=== PATIENT | male | born 1955 | race Caucasian/White ===

== ENCOUNTER 2019-03-18 12:56 | Emergency (ER) | payer BC, SELFPAY ==
[2019-03-18 12:57] VITALS: BP 140/86; PULSE 72; RESP 18; TEMP 36.2; O2SAT 98; BMI 25.5
--- NOTE | 2019-03-18 13:29 | CT_ITS ---
STUDY: CT ABDOMEN AND PELVIS WITH CONTRAST REASON FOR EXAM: Male, 63 years old. History of melanoma RADIATION DOSAGE (If Supplied By Facility): CTDIvol = ( 16.18 ) mGy, DLP = ( 1785.71 ) mGycm TECHNIQUE: Transaxial images were obtained from the dome of the diaphragm to the symphysis pubis without oral contrast. 100 IV/Oral Isovue 300 was administered. Sagittal and coronal images were reconstructed. Individualized dose optimization techniques were used for this CT. COMPARISON: PET scan April 19, [address] FINDINGS: There is visualization of the right-sided pulmonary parenchyma. Since prior study there is been a development of large masses that are bordering the diaphragms and the confines of the pericardial fat bilaterally. The mass on the right measures 8 x 6 cm. The mass on the left measures 9.7 x 7.9 cm invading into the fat within the left upper quadrant. The heart is borderline and partially effaced by 2 large masses in the lower chest. Normal liver. Normal gallbladder and extrahepatic biliary system. Normal spleen. There is an atrophied appearance of the tail the pancreas. The pancreatic duct is distended and likely obstructed by the 6.5 x 5.3 x 4.5 cm large mass at the head of the pancreas which is inhomogeneous partially enhancing and lobulated. This masses pushing into the inferior mesenteric vein just under the splenic confluence causing greater than 90% stenosis. See image #45 coronal views. There is no definitive thrombus within the portal vein at this time. There is a mass in the right adrenal gland or near the right adrenal gland that measures 4.5 x 4.7 x 5.8 cm. The left adrenal gland appears normal. Normal right kidney. There is an exophytic cyst in the left kidney stable since prior study measuring 1.8 cm per There is radiopaque food material within the stomach. There is an air-fluid level demonstrated. There is a mass near the stomach and liver measuring 2.1 x 1.8 cm. There masses within the mesentery bordering the small bowel and at least 3 places. One image #74 measuring 2.0 x 1.9 cm the next measuring 4.3 x 3.8 cm image #80 axial views and within the pelvis measuring 4.5 x 4 cm image #90. At this time there is no evidence of bowel obstruction there is a mildly thickened appearance of the small bowel. The colon is relatively torturous decompressed. There are a few diverticula present without diverticulitis. The appendix is visualized and appears normal. Normal abdominal aorta. Normal inferior vena cava. There are small retroperitoneal lymph nodes. There is a small focus of fluid or developing mass in the right side of the pelvis measuring 1.3 cm. Normal urinary bladder. The prostate is mildly enlarged with calcification. There is a visualized right side semimembranosus muscle enhancing mass measuring 1.6 x 1.5 cm. And is seen on the left lower extremity CT there is a mass within the medial aspect of the left thigh measuring 4.6 x 4.1 cm. There is also mass in the left-sided adductor muscle. There are diffuse degenerative changes of the visualized lumbar spine. CT/Abdomen/Pelvis WITH Contrast IMPRESSION: Multifocal large enhancing masses as detailed above including large masses on both sides of the heart. In addition there is a concerning mass which is effacing the inferior mesenteric vein just proximal to the confluence. There is a mass which is obstructing the pancreatic duct. Multiple mesenteric and soft tissue, intramuscular masses. Above findings consistent with widespread metastasis likely from melanoma. These findings were discussed with Dr. Fletcher. N.B. : The above information has been verbally conveyed by Rossy Gray MD to Anh Fletcher MD, on 03/18/2019 16:08:31 (ET). Electronically Signed: Rossy Gray MD at 16:27 EDT Tel , Service support ,
--- NOTE | 2019-03-18 13:30 | CT_ITS ---
We are attempting to reach an attending provider to discuss findings. An addendum with communication details will be sent when the communication is complete. STUDY: T LOWER EXTREMITY WITH CONTRAST LEFT LEFT REASON FOR EXAM: Male, 63 years old. Palpable nodularity left leg RADIATION DOSAGE (If Supplied By Facility): CTDIvol = ( 16.18 ) mGy, DLP = ( 1785.71 ) mGycm. Individualized dose optimization techniques were used for this CT.? TECHNIQUE: Multiple axial images of the left flexion deformity were obtained from the iliac crests to the distal shaft of the femur after the administration of 100 mL of Isovue-300. Sagittal coronal reformatted images are performed. COMPARISON: Limited comparison April 19, 2016 PET/CT FINDINGS: Superficial to the level of the left proximal superficial femoral artery internal to the gracilis lateral to the abductor muscle partially within the fat there is a abnormal enhancing lobulated mass measuring 4.2 x 4.6 x 5.1 cm. It has mass effect. There is an additional mass within the adductor longus or bordering the fat measuring 1.9 x 1.7 cm. Within the partially visualized pelvis there is a similar-appearing lobulated enhancing mass measuring 4.4 x 3.3 cm image #13 in the mid mesentery. There is an additional masslike density measuring 4.6 x 3.1 cm bordering the small bowel. The bladder wall is mildly thickened. The prostate is moderately enlarged. . CT/Extremity Lower WITH Contrast IMPRESSION: There are 4 masses visualized. On this left lower extremity study. The mass in the thigh that is palpable is enhancing and in the medial aspect of the left lower extremity measuring 4.2 x 4.6 x 5.8 cm as detailed above. There is a mass in the adductor longus, there are 2 masses within the mesentery each measuring approximately 4.4 x 3 cm. Findings are suspicious for multifocal metastasis, given history of melanoma consider metastatic melanoma. Recommend correlation with CT scan of the abdomen and pelvis. And/or follow-up PET scan. Electronically Signed: Rossy Gray MD at 16:02 EDT Tel , Service support ,
[2019-03-18] MEDS: Ondansetron 4 MG/2 ML Vial IV (13:52)
[2019-03-18 14:09] LABS: Absolute Lymphocyte Count 0.75 X10^3/ul (0.83-4.51); Absolute Neutrophil Count 5.2 X10^3/uL (2.0-7.7); Basophil# 0.01 X10^3/uL; Basophil% 0.2 % (0-1); Eosinophil# 0.15 X10^3/uL; Eosinophils% 2.3 % (0-5); Hematocrit 42.4 % (40-54); Hemoglobin 14.3 g/dl (13.0-16.5); Lymphocyte # 0.75 X10^3/ul (4.0); Lymphocyte % 11.4 % (19-41); Mean Corp Hgb Conc 33.7 g/gl (32-36); Mean Corpuscular Hgb 29.9 pg (27.0-32.0); Mean Corpuscular Volume 88.7 fL (80-94); Mean Platelet Vol. 10.4 fl (6.2-12.0); Monocyte# 0.44 X10^3/uL; Monocyte% 6.7 % (0-10); Neutrophil # 5.21 X10^3/uL (2.7-7.7); Neutrophil % 79.2 % (47-70); POSITIVE COUNT NO; POSITIVE DIFFERENTIAL NO; POSITIVE MORPHOLOGY NO; Platelet Count 250 K/mm3 (150-450); RBC Distribution Width CV 13.8 % (11.6-14.6); RBC Distribution Width SD 43.9 fl (35.1-43.9); Red Blood Count 4.78 M/mm3 (4.6-6.2); White Blood Count 6.6 K/mm3 (4.4-11.0)
[2019-03-18 14:18] LABS: AST(SGOT) 20 U/L (15-37); Alanine Aminotransfer ALT/SGPT 36 U/L (16-61); Albumin, Serum 3.1 g/dL (3.2-5.0); Alkaline Phosphatase 154 U/L (45-117); Anion Gap 8 (5-15); BUN 22 mg/dL (7-18); BUN/Creat Ratio 20.8 RATIO (10-20); Bilirubin, Direct 0.14 mg/dL (0.00-0.30); Calcium,Total 8.9 mg/dL (8.5-10.1); Chloride 103 mmol/L (98-107); Creatinine, Serum 1.06 mg/dL (0.70-1.30); EST Glomerular Filtration Rate 75 mL/min (>60); Est Glom Filt Rate - Afr Amer 91 mL/min (>60); Estimated Creatinine Clearance 69.01 ml/min; Globulin 3.7 g/dL (2.2-4.2); Glucose 120 mg/dL (74-106); Lipase 169 U/L (73-393); Potassium 4.1 mmol/L (3.5-5.1); Protein, Total 6.8 g/dL (6.4-8.2); Sodium Level 141 mmol/L (136-145)
[2019-03-18 14:44] LABS: Bacteria 0 SEEN /hpf (None Seen); Mucous, Urine 0 SEEN /hpf (<or=2+); Red Blood Cells-Urine 0 SEEN /hpf (0-5); Squamous Epithelial Cells - UA 0 SEEN /hpf (0-5); White Blood Cells 0 SEEN /hpf (0-5)
[2019-03-18 14:49] LABS: Color, Urine Yellow (Yellow); Glucose, Dipstick Normal (Normal); Ketone-Dipstick Negative (Negative); Leukocyte Esterase-Dipstick Negative /ul (Negative); Nitrite-Dipstick Negative (Negative); Occult Blood-Urine Negative /ul (Negative); Protein-Dipstick Negative (Negative); Specific Gravity, Urine 1.025 (1.002-1.030); Urine Bilirubin Dipstick Negative (Negative); Urine Clarity Clear (Clear); Urine Urobilinogen 1 mg/dl (Normal)
--- NOTE | 2019-03-18 15:45 | ED.VISSUMM ---
- ER Visit Summary Date of Service: 03/18/19 Chief Complaint: Abdominal pain, vomiting History of Present Illness: The patient is a 63 M with generalized abdominal pain and nausea/vomiting, worse at night over the past 1 to 2 months. Patient states he feels very fatigued and tired. He has had a 20 pound weight loss since winter but does admit he was trying to lose some weight as well. He has noted a lump to his left thigh that is nontender. He was seen by his PCP and advised he probably had pulled a muscle. Patient denies any blood work or imaging being done. Patient does have a history of melanoma on his chest that was excised 3 years ago. Physical Examination: Vital signs are unremarkable. Patient lying in bed no acute distress. He is nontoxic-appearing. Head and neck examination unremarkable. Heart is regular rate and rhythm. Lung sounds are clear. Abdomen is soft with no focal tenderness to palpation. Hypoactive bowel sounds are present throughout. Lower extremity examination was a firm 6 cm round mass in the proximal anterior left thigh. No overlying skin changes are noted. Test Results: CBC and chemistry studies significant only for glucose of 120. LFTs significant for an alk phos of 154. Lipase is normal. Urinalysis normal. CT scan of the left lower extremity reveals 2 masses in the left thigh. There are 2 masses visualized in the left pelvis. CT abdomen pelvis with p.o. and IV contrast reveals multifocal large enhancing masses throughout the abdomen. One mass is effacing the inferior mesenteric vein. One mass is absent in the pancreatic duct. These findings are consistent with metastatic melanoma. Emergency Department Course and Treatment: Patient was given IV fluids and Zofran. Test results were discussed with the patient and at bedside. He states that he saw a doctor in [place] with his prior melanoma and wishes to follow-up with them. I specifically asked multiple times whether this was a director of residence life, general surgeon, or oncologist. He is unsure but will call them in the morning. I advised him he must follow-up with an oncologist as soon as possible. He will be given phone numbers for both oncology group here in [facility] for follow-up if he does not have an oncologist that he can get into. Treatment Plan: [] Disposition: Discharge Impression: Metastatic melanoma This note was generated with [employer] software. It may contain incorrect words, spelling, and punctuation that were not noted in review of the chart prior to signing ED Disposition - Plan for ED Patient: Disposition: Home or Assisted Living Prescriptions: Hydrocodone Bitart/Apap 5-325 [[place] 5MG-325MG] 1 tablet PO Q6H PRN PRN 3 Days #10 tablet PRN Reason: Pain Ondansetron [Zofran Odt] 4 mg PO Q8H PRN PRN #10 tablet PRN Reason: Nausea Referrals: Tim Guevara DO [STAFF PHYSICIAN] - Mango Collado MD [STAFF PHYSICIAN] - Additional Instructions: As discussed, your CT scans revealed multiple masses in your abdomen and two in the left thigh. These appear to be consistant with metastatic melanoma. You need to follow-up with your oncologist as soon as possible. If you cannot find the information for the oncologist you saw previously, the information for two of the local oncologists have been provided.
[2019-03-18 16:00] VITALS: BP 143/99; PULSE 67; RESP 16; O2SAT 97
[2019-03-18] MEDS: 0.9% Normal Saline 1,000 ML 150 ML IV (16:25)
[2019-03-18 17:03] VITALS: BP 141/89; PULSE 73; RESP 16; O2SAT 97
== END 2019-03-18 17:04 | disposition home or self-care (01) ==
PROVIDERS: Emergency Provider Emergency Medicine; Family Provider Family Medicine; PCP Family Medicine
DX: C79.9 Secondary malignant neoplasm of unspecified site (principal); Z85.820 Personal history of malignant melanoma of skin; Z72.0 Tobacco use
CPT/HCPCS: 73701; 74177; 80048; 80076; 81001; 83690; 85025; 96361; 96374; 99283; J7030; J7040; Q9967; J2405

== ENCOUNTER → 2019-03-23 | Outpatient (CLI) | payer BC, SELFPAY ==
--- NOTE | 2019-03-23 | IMM_PTH ---
PATIENT: CHRIS GARDNER LOC: [facility] U#:[id number] AGE/SX: 63/M ROOM: RE03/23/[address]: Dr. Darryn Storey MD : 1955 BED: DIS: 03/23/2019 SPEC #: [id number] RECD: 03/27/19 10:42 STATUS: DREA REQ #: [id number] ROBIN: 03/23/19 00:[address]: Darryn Storey DEPT: IMMUNOHISTOCHEMISTRY RECD BY: Perla Meadows ENTERED: 03/27/19 10:48 SP TYPE: IMMUNO OTHR DR: No Primary Care Phys Tissues: Skin of leg, NOS Procedures: RCC (add) SMA (add) NAPSIN A (add) CK20 (add) CK5-6 (add) CK7 (add) CK8 (add) DESMIN (add) HEP PAR (add) TTF1 (add) Vimentin (add) Pankeratin (initial) MELAN-A (add) P40 (add) PSAP (add) S-100 (add) PHYSICIAN & [address] [address] SPECIMEN INFORMATION: Tissue Source: Left thigh tissue Clinical Info: Left thigh mass Specimen Number: [id number] CPT code: 44656, 70762 x15 METHODOLOGY: Deparaffinized sections of prefer/formalin-fixed tissue or PAP/DQ stained slides are incubated with monoclonal/polyclonal antibodies/oligonucleotide probes. Localization is made via biotin free immunoperoxidase method. Appropriate controls are performed and reacted as expected. Results on target cell population are indicated in the following table: RESULTS: ANTIBODY / CLONE RESULT AE1-3 (AE1/AE3/PCK26) negative CK7 (OV-TL12/30) negative CK8 (74nuesG12) negative CK20 (KS20.8) negative Vimentin (V9) positive Actin (1A4) negative Desmin (CE-R-11) positive, focal and weak Melan A (A103) positive S-100 (4C4.9) positive TTF-1 (8G7G3/1) negative Napsin A (Rabbit Polyclonal) negative HepPar (OCh1E5) negative RCC (PN-15) negative PSAP (PASE/4LJ) negative CK5-6 (D5 & 1684) negative P40 (BC28) negative These tests were developed and their performance characteristics determined by [facility]. They may not have been cleared or approved by the U.S. Food and Drug Administration. The FDA has determined that such clearance or approval is not necessary. INTERPRETATION: Left thigh, biopsy: Consistent with metastatic malignant melanoma. Ezequiel Crouch M.D. 03/27/19 Comment: Clinical correlation necessary.
[2019-03-23 13:52] VITALS: BMI 25.8
--- NOTE | 2019-03-23 14:00 | MASS_PTH ---
PATIENT: CHRIS GARDNER LOC: [facility] U#:[id number] AGE/SX: 63/M ROOM: RE03/23/[address]: Dr. Darryn Storey MD : 1955 BED: DIS: 03/23/2019 SPEC #: [id number] RECD: 03/23/19 14:57 STATUS: DREA REThai #: [id number] ROBIN: 03/23/19 14:[address]: Darryn Storey DEPT: SURGICAL PATHOLOGY RECD BY: Andrea Ennis ENTERED: 03/26/19 11:17 SP TYPE: Mass OTHR DR: No Primary Care Phys Tissues: Thigh, NOS Procedures: Surgery Specimen Level IV HEADER OPERATION: Left thigh biopsy PRE-OP DIAGNOSIS: Left thigh mass; possible metastatic melanoma TISSUE SUBMITTED: Left thigh tissue MICROSCOPIC DIAGNOSIS Left thigh tissue, core biopsy: Consistent with metastatic malignant melanoma. See comment. SOFYA:shimon 03/27/19 COMMENT Immunohistochemistry ([id number]) supports the above diagnosis. Case has been reviewed in consultation with Dr. Adame who concurs with the above diagnosis. IDC:AM MICROSCOPIC DESCRIPTION Slides are reviewed. GROSS DESCRIPTION Received in fixative is one container labeled with the patient's name and designated left thigh. The specimen consists of multiple elongated fragments of farr-yellow soft tissue that in aggregate measure 3 x 2 x 0.2 cm. The entire specimen is submitted in one cassette. / SJ:shimon 03/26/19 TC:0 CPT: 28770 ADDENDUM ADDENDUM ADDENDUM ADDENDUM ADDENDUM ADDENDUM ADDENDUM 04/18/2019 11:51 ADDENDUM 04/18/2019 11:51 ADDENDUM 04/18/2019 11:51 ADDENDUM 04/18/2019 11:51 ADDENDUM 04/18/2019 11:51 BRAF ANALYSIS FROM [facility] RESULTS: Negative No BRAF V600E or V600K mutations were detected in the provided specimen. Please see complete report in e-chart or EMR for complete details
== END | disposition home or self-care (01) ==
LOC: LABSPEC 15:20
PROVIDERS: Referring Provider Surgery; Visit Provider Surgery
DX: R22.42 Localized swelling, mass and lump, left lower limb (principal)
CPT/HCPCS: 88305; 88341; 88342

== ENCOUNTER → 2019-03-29 | Outpatient (CLI) | payer BC, SELFPAY ==
[2019-03-22 10:36] VITALS: BMI 25.8
[2019-03-23 13:52] VITALS: BMI 25.8
--- NOTE | 2019-03-29 17:36 | MRI_ITS ---
STUDY: MRI BRAIN WITH AND WITHOUT CONTRAST REASON FOR EXAM: Male, 63 years old. Melanoma, staging TECHNIQUE: Standardized multiplanar fat and water weighted pulse sequences were obtained. 15 IV Dotarem was administered for the contrast portion of the examination. COMPARISON: PET/CT 04/19/2016. FINDINGS: Normal size of the ventricles and extra-axial spaces for the patient's age. Normal white matter tracts of the supratentorial brain. Normal bilateral basal ganglia. Normal thalami. There is no extra-axial fluid accumulation. Normal flow voids within the major intracranial circulation suggesting patency by spin echo criteria. Normal venous enhancement. There is no enhancing intra-axial or extra-axial abnormality. Normal sella turcica, pituitary gland, infundibular stalk, optic chiasm and hypothalamus. Normal tectal plate and pineal gland. Normal midbrain, aj and medulla. Normal cerebellum. Normal basal cisterns. Normal bilateral temporal bones. Normal bilateral internal auditory canals. No demonstrated orbital abnormality, within the constraints of a routine brain study. Normal visualized paranasal sinuses. Normal calvarium and skull base. Normal visualized soft tissue structures. Normal visualized upper cervical spine. MRI/Brain W/WO Contrast IMPRESSION: Normal unenhanced and enhanced MRI of the brain. Electronically Signed: Maddison Hill, at 17:10 EDT Tel , Service support ,
== END | disposition home or self-care (01) ==
LOC: MRI 17:13
PROVIDERS: Family Provider Family Medicine; PCP Family Medicine; Referring Provider Internal Medicine Hematology & Oncology; Visit Provider Internal Medicine Hematology & Oncology
DX: C43.9 Malignant melanoma of skin, unspecified (principal)
CPT/HCPCS: 70553; A9575

== ENCOUNTER 2019-04-18 09:24 | Day surgery (SDC) | payer BC, SELFPAY ==
[2019-04-10 15:45] VITALS: BMI 25.0
--- NOTE | 2019-04-11 09:41 | HP_ITS ---
Intake Vital Signs 04/10/19 Body Mass Index (BMI) 25.0 04/10/19 Height 5 ft 8 in 04/10/19 Weight: 164 lb 04/10/19 Body Mass Index (BMI) 24.9 04/10/19 Blood Pressure 141/88 H 04/10/19 Respiratory Rate 16 04/05/19 Body Mass Index (BMI) 25.0 Intake Visit Reasons: Port Placement Consult Chief Complaint: Metastatic melanoma Tooling Specialist Required: No Is patient in pain?: No Allergies Penicillins [PCN] Allergy (Severe, Verified 04/10/19 15:45) Unknown Medications Hydrocodone Bitart/Apap 5-325 [[place] 5MG-325MG] 1 tab PO Q6H PRN PRN 03/22/19 [History Confirmed 04/10/19] Ondansetron [Zofran Odt] 4 mg PO Q8H PRN PRN 10 Days #30 tab 03/28/19 [Rx Confirmed 04/10/19] PFSH Medical History Melanoma (Acute) surgery on fingers (Acute) Surgical History Melanoma (Chronic) Family History Brother Prostate cancer Bladder cancer Father Stomach cancer Heart disease Social History (Updated 04/11/19 @ 09:41 by Darryn Storey MD) Smoking Status: Current every day smoker alcohol intake: current alcohol intake frequency: a few times a week HPI HPI HPI: CHRIS GARDNER, is a 63 M who presents to the office today for HPI HPI Surgical H&P: Yes HPI: CHRIS GARDNER, is a 63 M who presents to the office today for port placement. Patient has metastatic melanoma and requires port for treatment. ROS General General: No weight change or fatigue Musc Additional Details: Left thigh mass Cardio Cardiovascular: No murmur, pacemaker, heart disease, atrial fibrillation, high blood pressure, heart attack, heart stent, palpitations, shortness of breat with exertion or chest pain Psych Psychiatric: No depression or anxiety Resp Respiratory: No shortness of breath, No sleep apnea, No cough, No COPD, No asthma, No emphysema, No wheezing Gastro Gastrointestinal: No abdominal pain, Yes nausea or vomiting, No diarrhea, No constipation, No blood in stool, No acid reflux, No hemorrhoids, No ulcers, No gallbladder problem, No black,tarry stools Anton Hematologic: No blood thinners Exam Const General: cooperative Orientation: alert, oriented x3 Resp Effort & Inspection: normal respiratory effort Auscultation: clear to auscultation bilaterally Cardio Rate: regular rate Rhythm: regular rhythm Heart Sounds: no murmurs GI Inspection: non-distended Palpation: soft, nontender Assessment & Plan Problems 1. Metastatic melanoma C79.9 2. Encounter for insertion of venous access port Z45.2 Plan Patient requires port for treatment of metastatic melanoma. I discussed port placement with the patient. I discussed the risks including but not limited to bleeding, infection, pneumothorax, line infection and DVT. Patient understands risks and is willing to proceed. Darryn Storey MD Pager: [facility] [address] [place] [address], [address] [place] [address] Office: Coding Level of Care Code Off vis,est,level 3 Diagnoses Metastatic melanoma C79.9 Encounter for insertion of venous access port Z45.2 04/11/19 0941 <Electronically signed by Darryn agrawal MD> Date _ Darryn Storey MD I have re-examined the patient. There are no clinical changes since date of exam.
[2019-04-16 14:52] VITALS: BMI 25.2
[2019-04-18] VITALS (9 sets, daily range): BP systolic 92–120; BP diastolic 71–89; PULSE 67–79; RESP 14–16; TEMP 36.1–36.3; O2SAT 94–98; BMI 24.7
[2019-04-18] MEDS: Bupiv/Epi 0.5% Mpf 30 ML Vial (12:30)
--- NOTE | 2019-04-18 13:04 | RAD_ITS ---
STUDY: X-RAY CHEST REASON FOR EXAM: Male, 63 years old. Port placement. TECHNIQUE: Single AP portable view of the chest. COMPARISON: None. FINDINGS: A right-sided portacatheter has been inserted. The tip is at the junction of the superior vena cava and right atrium. Bibasilar pulmonary masses with elevation of the left hemidiaphragm. Small left pleural effusion. Normal size heart. Normal mediastinum and erwin. Normal visualized pulmonary arteries. There is atherosclerotic calcification of the aortic arch with tortuosity. There are diffuse degenerative changes of the visualized thoracic spine. Normal visualized ribs, clavicles, and shoulders. There is no demonstrated abnormality of the visualized soft tissue structures of the upper abdomen. RAD/CXR for Line Placement IMPRESSION: Known pulmonary masses at the lung bases. The tip of the terri catheter is at the junction of the superior vena cava and right atrium. Electronically Signed: Emil Julio, at 13:29 EDT , Service support ,
--- NOTE | 2019-04-18 13:18 | PCM.OPRPT ---
Problem List (1) Encounter for adjustment or management of vascular access device Status: Acute Report of Operation Date of Procedure: 04/18/19 Pre-Operative Diagnosis: Metastatic melanoma and need for vascular access Post-Operative Diagnosis: Same Surgery/Procedure Performed:: Right-sided fluoroscopy and ultrasound-guided chest port placement utilizing right IJ Description of Procedure: After obtaining informed consent patient was brought back to the operating room MAC anesthesia was induced and the right chest and neck were prepped in normal sterile fashion. Ultrasound was used to evaluate both IJs and the right IJ was selected. Next, using a needle, the right IJ was accessed and a guidewire was passed on into the superior vena cava under fluoroscopy guidance. A small incision was made over the puncture site and the dilator introducer was placed over the guidewire. Next this was capped and the pocket was made for the port. 1% lidocaine with epinephrine was injected in the proposed port site. An incision was made with scalpel. Electrocautery was used to make a pocket under the skin and subcutaneous tissue. Hemostasis was obtained. Next, the catheter was tunneled up to the neck incision site and placed through the introducer. The peel-away introducer was removed and the position of the catheter was confirmed on fluoroscopy. Next, the catheter was trimmed and attached to the port with the locking device. Interrupted 2-0 Vicryl sutures were used to anchor the port to the chest wall and then the port was placed inside the pocket. The pocket was then flushed with saline and the port irrigated with saline. There was good blood return and the port flushed easily. The skin was closed with subcutaneous interrupted 3-0 Vicryl sutures. A single 3-0 Vicryl sutures placed under the skin at the neck incision site. The port was then accessed with the catheter in the 90 degree Wise needle. The port was flushed with heparin. Steri-Strips were placed as well as op sites. Patient tolerated procedure well, was taken to PACU in stable condition. Chest x-ray will be obtained. Grafts/Implants Used: 8 [employer] - Admit VTE Documentation VTE Mechan Device Prophylaxis: SCD's
--- NOTE | 2019-04-18 13:24 | DCINST_ITS ---
Discharge Diet: No Restrictions - Pain medication may cause nausea. You should typically eat light foods as you take your pain medication. Discharge Activity: Return to Normal Activity, May Shower - with your bandage in place in 1-2 days after surgery. DO NOT SHOWER WHEN YOUR PORT IS ACCESSED. Call your doctor if your incision/area has: Continuous Slow Oozing, Sudden Increased Bleeding, Increased Pain/ Swelling, Increased Redness Call your doctor if you observe: Fever of 101 or Higher Remove Dressing in (days):: 3 - When you remove the bandage, leave the steri- strips intact until they fall off. Allergies/Adverse Reactions: Allergies Penicillins [PCN] Allergy (Severe, Verified 04/18/19 09:53) Unknown Medications to take at Discharge Hydrocodone Bitart/Apap 5-325 [[place] 5MG-325MG] 1 tab PO Q6H PRN PRN 03/22/19 Ondansetron [Zofran Odt] 4 mg PO Q8H PRN PRN 10 Days #30 tab 03/28/19 Lidocaine/Prilocaine [Lidocaine-Prilocaine Cream] 1 applicatio TP DAILY PRN PRN 30 Days #1 tube 04/16/19 Primary Care Physician: Isaías Langston MD [Primary Care Provider] - Test Results: Test results from this visit will be discussed in further detail at your follow- up appointment, if applicable. Please Follow Up With: Darryn Storey MD When: Call tomorrow to make 2 week follow up appt [phone]
== END 2019-04-18 14:22 | disposition home or self-care (01) ==
LOC: SDC 09:25 → AC 09:27
PROVIDERS: Family Provider Family Medicine; PCP Family Medicine; Referring Provider Surgery; Visit Provider Surgery
PROC: (CPT 36571; principal; 2019-04-18 11:15)
DX: C43.9 Malignant melanoma of skin, unspecified (principal); C79.9 Secondary malignant neoplasm of unspecified site; Z45.2 Encounter for adjustment and management of vascular access device; F17.200 Nicotine dependence, unspecified, uncomplicated
CPT/HCPCS: 36571; 71045; 77001; J7120; C1788

== ENCOUNTER → 2019-08-20 | Outpatient (CLI) | payer BC, SELFPAY ==
[2019-08-02 09:58] VITALS: BMI 24.1
--- NOTE | 2019-08-20 17:03 | CT_ITS ---
STUDY: CT BILATERAL LOWER EXTREMITY WITH CONTRAST REASON FOR EXAM: Male, 63 years old. MALIGNANT MELANOMA,METS TO LUNG/ADRENAL GLAND/LYMPH NODES RADIATION DOSAGE (If Supplied By Facility): CTDIvol = ( 12.21 ) mGy, DLP = ( 1866.18 ) mGycm TECHNIQUE: Thin section transaxial imaging of the hip was obtained, with sagittal and coronal reconstructed images. Individualized dose optimization techniques were used for this CT. COMPARISON: None. FINDINGS: The previously described mass in the left thigh in the medial aspect of the left lower extremity measuring 4.2 x 4.6 x 5.8 cm has decreased in size now measures 1.5 x 1.7 x 1.5 cm. The previously described mass in the adductor longus is no longer seen, The previously described mass in the right semimembranous muscle measured 1.97 x 1.5 cm is now longer seen. No new lesions are noted in the right and left lower extremities. CT/Extremity Lower WITH Contrast IMPRESSION: The previously described mass in the left thigh in the medial aspect of the left lower extremity measuring 4.2 x 4.6 x 5.8 cm has decreased in size now measures 1.5 x 1.7 x 1.5 cm. The previously described mass in the adductor longus is no longer seen, The previously described mass in the right semimembranous muscle measured 1.97 x 1.5 cm is now longer seen. Electronically Signed: Bin Piper, at 2:46 EST Tel , Service support ,
--- NOTE | 2019-08-20 17:03 | CT_ITS ---
STUDY: CT ABDOMEN AND PELVIS WITH CONTRAST REASON FOR EXAM: Male, 63 years old. MALIGNANT MELANOMA,METS TO LUNG/ADRENAL GLAND/LYMPH NODES RADIATION DOSAGE (If Supplied By Facility): CTDIvol = ( 12.21 ) mGy, DLP = ( 1866.18 ) mGycm TECHNIQUE: Transaxial images were obtained from the dome of the diaphragm to the symphysis pubis without oral contrast. IV Isovue 300 100CC was administered. Sagittal and coronal images were reconstructed. Individualized dose optimization techniques were used for this CT. COMPARISON: None. FINDINGS: The visualized portions of the heart are within normal limits. Normal liver. Normal gallbladder and extrahepatic biliary system. Normal spleen. Normal pancreas. There is decrease in size of the mass in the head of pancreas measured previously 5 x 5.3 x 4.5 cm now measures 1.7 x 2 x 2.4 cm. There is decrease in size of the right adrenal gland mass measured previously 4.5 x 4.7 x 5.8 cm., It now measures 2.3 x 2 x 2.8 cm. The left adrenal gland appears normal. Normal right kidney. There is an exophytic cyst in the left kidney stable since prior study measuring 1.8 cm per There is a mass near the lesser curvature of the stomach previously measured 2.1 x 1.8 cm. Is no longer seen. The previously described masses within the mesentery bordering the small bowel previously measuring 2.0 x 1.9 cm the next measuring 4.3 x 3.8 cm and the mass within the pelvis measuring 4.5 x 4 cm. Are no longer seen There is a visualized right side semimembranosus muscle enhancing mass measuring 1.6 x 1.5 cm. And is seen on the left lower extremity CT there is a mass within the medial aspect of the left thigh measuring 4.6 x 4.1 cm. There is also mass in the left-sided adductor muscle. There are diffuse degenerative changes of the visualized lumbar spine. Normal right kidney. Normal left kidney. Normal visualized stomach. Normal small intestine. Normal colon. The appendix is visualized and appears normal. Normal abdominal aorta. Normal inferior vena cava. Normal retroperitoneum. Normal urinary bladder. Normal abdominal wall. Normal osseous structures. CT/Abdomen/Pelvis W IV Cont ONLY IMPRESSION: There is decrease in size of the mass in the head of pancreas measured previously 5 x 5.3 x 4.5 cm now measures 1.7 x 2 x 2.4 cm. There is decrease in size of the right adrenal gland mass measured previously 4.5 x 4.7 x 5.8 cm., It now measures 2.3 x 2 x 2.8 cm. The previously described mass near the lesser curvature of the stomach previously measured 2.1 x 1.8 is no longer seen. The previously described masses within the mesentery bordering the small bowel previously measuring 2.0 x 1.9 cm the next measuring 4.3 x 3.8 cm and the mass within the pelvis measuring 4.5 x 4 are no longer seen There is a visualized right side semimembranosus muscle enhancing mass measuring 1.6 x 1.5 cm. And is seen on the left lower extremity CT there is a mass within the medial aspect of the left thigh measuring 4.6 x 4.1 cm. There is also mass in the left-sided adductor muscle. There are diffuse degenerative changes of the visualized lumbar spine. Electronically Signed: Bin Piper, at 1:23 EST Tel , Service support ,
--- NOTE | 2019-08-20 17:03 | CT_ITS ---
STUDY: CT CHEST WITH CONTRAST REASON FOR EXAM: Male, 63 years old. MALIGNANT MELANOMA,METS TO LUNG/ADRENAL GLAND/LYMPH NODES RADIATION DOSAGE (If Supplied By Facility): CTDIvol = ( 12.21 ) mGy, DLP = ( 1866.18 ) mGycm TECHNIQUE: Transaxial imaging was performed following intravenous administration of IV 100mL Isovue-300 100CC. Individualized dose optimization techniques were used for this CT. COMPARISON: PET scan from 03/20/2016 and PET scan from 04/02/2019 FINDINGS: The previously described mass in the anterior aspect of the right lung base has decreased in size it measured previously 7 x 8.5 cm and now measures 6.6 x 5 point centimeter. The previously described mass in the anterior aspect of the left lung base has also decreased in size it measured previously 11.4 x 10.3 cm and now measures 8.2 x 6.5 cm. Multiple small bilateral lung nodules are noted have nonspecific appearance the largest measures 5 mm is in the lateral segment of right middle lobe, axial image #57. It is uncertain whether these nodules were present previously. There is a small left pleural effusion has also decreased in size since the previous study. Normal heart and pericardium. Normal mediastinum. Normal hilar regions. Normal enhanced pulmonary arteries. Normal aorta arch and descending thoracic aorta. Normal osseous structures. CT/Chest WITH Contrast IMPRESSION: The previously described mass in the anterior aspect of the right lung base has decreased in size it measured previously 7 x 8.5 cm and now measures 6.6 x 5 point centimeter. The previously described mass in the anterior aspect of the left lung base has also decreased in size it measured previously 11.4 x 10.3 cm and now measures 8.2 x 6.5 cm. Multiple small bilateral lung nodules are noted have nonspecific appearance the largest measures 5 mm is in the lateral segment of right middle lobe, axial image #57. It is uncertain whether these nodules were present previously, the resolution of the CT scan associated with the previous PET study is suboptimal for detection of lung nodules. Electronically Signed: Bin Piper, at 6:21 EST Tel , Service support ,
== END | disposition home or self-care (01) ==
LOC: CT 17:02
PROVIDERS: Referring Provider Internal Medicine Hematology & Oncology; Visit Provider Internal Medicine Hematology & Oncology
DX: C43.9 Malignant melanoma of skin, unspecified (principal); C77.9 Secondary and unspecified malignant neoplasm of lymph node, unspecified; C78.00 Secondary malignant neoplasm of unspecified lung; C79.70 Secondary malignant neoplasm of unspecified adrenal gland; C79.9 Secondary malignant neoplasm of unspecified site; Z79.899 Other long term (current) drug therapy
CPT/HCPCS: 71260; 73701; 74177; Q9967

== ENCOUNTER → 2019-12-20 15:20 | Outpatient (CLI) | payer BC, SELFPAY ==
[2019-12-06 09:52] VITALS: BMI 27.4
--- NOTE | 2019-12-20 15:21 | CT_ITS ---
STUDY: CT SCAN BILATERAL LOWER EXTREMITIES/THIGH REASON FOR EXAM: Male, 64 years old. Restaging malignant melanoma, mets to lung, left thigh, right adrenal gland and lymph nodes. Currently receiving chemotherapy, surgery to removed masses. RADIATION DOSAGE (If Supplied By Facility): CTDIvol = ( 12.23 ) mGy, DLP = ( 1448.59 ) mGycm. Individualized dose optimization techniques were used for this CT.? TECHNIQUE: Axial multidetector CT scan of the bilateral lower extremities/thighs. Coronal and sagittal reformatted images. COMPARISON: August 20, 2019. FINDINGS: RIGHT LOWER EXTREMITY: No enhancing lesions. No focal muscle abnormality. No acute fracture. No dislocation. No acute bone destruction. LEFT LOWER EXTREMITY: Tiny enhancing anterior medial thigh lesion measuring 1.2 cm x 1 cm x 1.9 cm (axial image 65 series 3 series 503). Left medial thigh elongated thin nonaggressive appearing lipoma (axial image 73 series 3 and coronal image 51 series 503). Lesion measures approximately 5.8 cm x 7.6 cm x 0.9 cm. No acute fracture. No dislocation. No acute bone destruction. CT/Extremity Lower WITH Contrast IMPRESSION: Stable left anterior medial thigh enhancing lesion (small metastatic focus) Stable left medial thigh lipoma Normal right thigh Electronically Signed: Justin Reid DO at 11:31 EDT Tel , Service support ,
--- NOTE | 2019-12-20 15:21 | CT_ITS ---
STUDY: CT SCAN BILATERAL LOWER EXTREMITIES/THIGH REASON FOR EXAM: Male, 64 years old. Restaging malignant melanoma, mets to lung, left thigh, right adrenal gland and lymph nodes. Currently receiving chemotherapy, surgery to removed masses. RADIATION DOSAGE (If Supplied By Facility): CTDIvol = ( 12.23 ) mGy, DLP = ( 1448.59 ) mGycm. Individualized dose optimization techniques were used for this CT.? TECHNIQUE: Axial multidetector CT scan of the bilateral lower extremities/thighs. Coronal and sagittal reformatted images. COMPARISON: August 20, 2019. FINDINGS: RIGHT LOWER EXTREMITY: No enhancing lesions. No focal muscle abnormality. No acute fracture. No dislocation. No acute bone destruction. LEFT LOWER EXTREMITY: Tiny enhancing anterior medial thigh lesion measuring 1.2 cm x 1 cm x 1.9 cm (axial image 65 series 3 series 503). Left medial thigh elongated thin nonaggressive appearing lipoma (axial image 73 series 3 and coronal image 51 series 503). Lesion measures approximately 5.8 cm x 7.6 cm x 0.9 cm. No acute fracture. No dislocation. No acute bone destruction. CT/Extremity Lower WITH Contrast IMPRESSION: Stable left anterior medial thigh enhancing lesion (small metastatic focus) Stable left medial thigh lipoma Normal right thigh Electronically Signed: Justin Reid DO at 11:32 EDT Tel , Service support ,
--- NOTE | 2019-12-20 15:21 | CT_ITS ---
STUDY: CT CHEST/ABDOMEN/PELVIS WITH CONTRAST REASON FOR EXAM: Male, 64 years old. Restaging malignant melanoma, mets to lung, left thigh, right adrenal gland and lymph nodes. Currently receiving chemotherapy, surgery to removed masses. RADIATION DOSAGE (If Supplied By Facility): CTDIvol = ( 12.23 ) mGy, DLP = ( 1448.59 ) mGycm TECHNIQUE: Transaxial imaging was performed following intravenous administration of IV 100mL Isovue-300. Multiplanar coronal and sagittal images were reformatted. Individualized dose optimization techniques were used for this CT. COMPARISON: 08/20/2019. FINDINGS: CHEST: Heart: Normal heart size. Coronary artery disease. No pericardial effusion. Aorta/great vessels: Vascular calcifications. No aneurysm. Pulmonary arteries: Tiny chronic appearing left upper lobe pulmonary embolus (axial image 46 series 2 and coronal image 133 series 601). No hypertension. Lungs/airways/mediastinum: 3 mm right upper lobe nodule (axial image 64 series 6). 3 mm right middle lobe nodule (axial image 67 series 6). Pleural-based 4 mm nodule (axial image 69 series 6). Tiny right lung base 2 mm nodule (axial image 84 series 6). Scar/atelectasis at the left lung base. Central airways patent. No focal patchy airspace opacities. Previously described necrotic left anterior mediastinal mass measuring 5.9 cm x 4.8 cm which appears to extend into the chest wall. Previously described necrotic right mediastinal/right lower lung mass now measuring 4.8 cm x 4 cm (axial image 89 series 2). Left-sided mediastinal lesion extending into the left chest wall. No pneumomediastinum. Normal thyroid. Pleura: No pneumothorax. No pleural effusion. Thyroid/esophagus: Normal thyroid. Normal esophagus. Soft tissues: Right chest wall Mediport device in position. Suspected gynecomastia. Punctate right chest wall nodules measuring 6 mm (axial image 69 series 2). Left chest wall 6 mm nodule (axial image 67 series 2). Extensive skin thickening at the chest wall near midline extending over the left lateral chest wall (axial images 76 through 91 series 2). Small right deltoid lesion measuring fat (axial image 19 series 2), statistically lipoma. Osseous structures: Degenerative changes. No acute process. ABDOMEN/PELVIS: Liver: Unremarkable. Gallbladder/biliary ducts: Unremarkable. Pancreas: Pancreatic atrophy. Stable slightly prominent pancreatic duct (axial image 36 series 3). Spleen: Unremarkable. Adrenal glands: Right adrenal nodule measuring 2.2 cm (axial image 37 series 3). Normal left adrenal gland. Kidneys/ureters/bladder: Small renal hypodense lesions, statistically cysts. Nondilated ureters. Normal urinary bladder. Prostate: Prostate calcifications. Large bowel/small bowel: Mild fecal retention. No acute small bowel or large bowel process. Appendix: No acute process. Gastroesophageal junction/stomach: Unremarkable. Retroperitoneum/lymph nodes: No intra-abdominal free air. No ascites. No pathologically enlarged lymph nodes. Vascular: Minimal vascular calcifications. No aneurysm. Osseous structures: Degenerative changes. No acute process. Subcutaneous/soft tissues: Small fat-containing umbilical hernia. Small fat-containing left inguinal hernia. No acute process. Mild right flank lipoma (axial image 70 series 3). See above. CT/Chest WITH Contrast IMPRESSION: Tiny chronic appearing left upper lobe pulmonary embolism without heart strain Decreased size right mediastinal/lower lung and left mediastinal/chest wall necrotic lesions (metastatic disease) Stable right adrenal lesion (metastatic disease) Stable small lung nodules measuring up to 4 mm (metastatic disease) Multiple 4 to 6 mm small skin nodular lesions and suspected gynecomastia (metastatic disease) Left chest wall/midline skin thickening (possible melanoma site/metastatic disease; correlate medical history) Continued short-term follow-up recommended N.B. : The above information has been verbally conveyed by Justin Reid DO to Dr. Collado;[phone], on 12/21/2019 11:56:12 (ET). Electronically Signed: Justin Reid DO at 11:56 EDT Tel , Service support ,
== END ==
LOC: CT 15:21 → ONC 01-17 10:42
PROVIDERS: Referring Provider Internal Medicine Hematology & Oncology; Visit Provider Internal Medicine Hematology & Oncology
DX: C43.9 Malignant melanoma of skin, unspecified (principal); C78.00 Secondary malignant neoplasm of unspecified lung; C79.70 Secondary malignant neoplasm of unspecified adrenal gland; C77.9 Secondary and unspecified malignant neoplasm of lymph node, unspecified; C79.9 Secondary malignant neoplasm of unspecified site
CPT/HCPCS: 71260; 73701; 74177; Q9967

== ENCOUNTER → 2020-04-03 07:09 | Outpatient (CLI) | payer BC, SELFPAY ==
[2020-03-20 09:39] VITALS: BMI 28.8
--- NOTE | 2020-04-03 07:10 | CT_ITS ---
STUDY: CT ABDOMEN AND PELVIS WITH CONTRAST REASON FOR EXAM: Male, 64 years old. MULTIPLE MELANOMA''S REMOVED FROM BODY, PREV HERNIA REPAIR, ASSESS RESPONSE TO CHEMO, malignant melanoma-lung, lymph node, left thigh and right adrenal mets-ON CHEMO RADIATION DOSAGE (If Supplied By Facility): CTDIvol = ( 16.2 ) mGy, DLP = ( 1803.17 ) mGycm TECHNIQUE: Transaxial images were obtained from the dome of the diaphragm to the symphysis pubis without oral contrast. IV 100mL Isovue-300 was administered. Sagittal and coronal images were reconstructed. Individualized dose optimization techniques were used for this CT. COMPARISON: 12/20/2019 FINDINGS: Normal liver. Normal gallbladder and extrahepatic biliary system. Normal spleen. Stable atrophy of the pancreas with stable prominence of the pancreatic duct. Stable 2.2 cm right adrenal nodule, normal left adrenal gland. No obstructive uropathy, stable hypodense exophytic 1.6 cm left renal cyst Normal visualized stomach. Normal small intestine. Retained stool noted throughout the colon. Scattered colonic diverticulosis without CT evidence of acute diverticulitis. There is non-visualization of the appendix. Normal abdominal aorta. Normal inferior vena cava. Scattered subcentimeter mesenteric and retroperitoneal lymph nodes. No suspicious new bulky mesenteric or retroperitoneal lymphadenopathy. Normal urinary bladder. There are prostatic calcifications. Stable fat-containing periumbilical and right inguinal hernias. There are diffuse degenerative changes of the visualized lumbar spine, and pelvis. CT/Abdomen/Pelvis W IV Cont ONLY IMPRESSION: Stable 2.2 cm right adrenal nodule Stable pancreatic atrophy with prominence of the pancreatic duct Colonic diverticulosis Degenerative bony changes Electronically Signed: Koko Dwyer MD at 8:22 EDT , Service support ,
--- NOTE | 2020-04-03 07:10 | CT_ITS ---
STUDY: CT CHEST WITH CONTRAST REASON FOR EXAM: Male, 64 years old. MULTIPLE MELANOMA''S REMOVED FROM BODY, PREV HERNIA REPAIR, ASSESS RESPONSE TO CHEMO, malignant melanoma-lung, lymph node, left thigh and right adrenal mets-ON CHEMO RADIATION DOSAGE (If Supplied By Facility): CTDIvol = ( 16.2 ) mGy, DLP = ( 1803.17 ) mGycm TECHNIQUE: Transaxial imaging was performed following intravenous administration of IV 100mL Isovue-300. Individualized dose optimization techniques were used for this CT. COMPARISON: 12/20/2019 FINDINGS: The lung windows show the lungs to be normally expanded. Chronic interstitial changes in both lung shah again noted. Previous described subcentimeter nodules in the right upper lobe on axial image 62, right middle lobe on axial image 65, and right lower lobe on axial image 82 are all unchanged from the previous study. No new suspicious noncalcified mass or nodule noted. No organized infiltrate or groundglass opacification. Soft tissue windows show stable appearance of a right subclavian port. The thyroid gland is unremarkable. Scattered subcentimeter axillary and mediastinal lymph nodes noted. Stable subcentimeter perihilar lymph nodes. Previously described necrotic pericardial soft tissue masses are again noted. There is one on each side of the heart. The one to the right of the heart shows a strand connected to the pleural surface while the one on the left side of the heart extends into and involves the pleural surface. The right-sided nodule is essentially unchanged again measuring approximately 4.6 x 3.7 cm while the nodule to the left of the heart is decreased in size from 5.04 x 4.83 cm to 4.12 x 4 cm. There are calcified coronary vessels, the heart is otherwise unremarkable. Osseous structures show degenerative change. Please see the dedicated abdomen and pelvis study for details of the abdomen and pelvis. CT/Chest WITH Contrast IMPRESSION: Lung windows show stable scattered subcentimeter noncalcified nodules in the right upper, middle and lower lobes. The largest of these again measures approximately 3 mm. No new suspicious noncalcified mass or nodule, no organized infiltrate or groundglass opacifications. Previously described bulky necrotic nodules on either side of the heart, likely pericardial lymph nodes are again noted. The one to the right of the heart is essentially unchanged, the one to the left of the heart has decreased in size by approximately 20% but still show some pleural invasion. Stable subcentimeter perihilar lymphadenopathy Calcified coronary vessels Degenerative bony changes Electronically Signed: Koko Dwyer MD at 8:16 EDT , Service support ,
--- NOTE | 2020-04-03 07:10 | CT_ITS ---
STUDY: CT LOWER EXTREMITIES REASON FOR EXAM: Male, 64 years old. MULTIPLE MELANOMA''S REMOVED FROM BODY, PREV HERNIA REPAIR, ASSESS RESPONSE TO CHEMO, malignant melanoma-lung, lymph node, left thigh and right adrenal mets-ON CHEMO RADIATION DOSAGE (If Supplied By Facility): CTDIvol = ( 16.2 ) mGy, DLP = ( 1803.17 ) mGycm. Individualized dose optimization techniques were used for this CT.? TECHNIQUE: 3.75 mm helical cuts were performed through the lower extremities with 100 mL Isovue-370 contrast. MPR performed COMPARISON: 12/20/2019 FINDINGS: There are bilateral hydroceles. A previously described subtle 1 cm enhancing lesion in the left anterior thigh is again noted on axial image 137. Stable benign intraosseous lipoma in the left thigh from axial image 136 through 155. No new suspicious subcutaneous nodule skin thickening or other soft tissue abnormality. No suspicious osseous lesion No suspicious vascular abnormality CT/Extremity Lower WITH Contrast IMPRESSION: Stable 1 cm subtle enhancing lesion in the anterior medial thigh on axial image 137. No new suspicious subcutaneous nodule or enhancing lesion within the soft tissues. No suspicious osseous or vascular lesion Stable benign intraosseous lipoma in the left thigh Stable bilateral hydroceles Overall, no significant change since the previous study, continued follow-up recommended Electronically Signed: Koko Dwyer MD at 8:26 EDT , Service support ,
[2020-04-03] MEDS: 0.9% Saline Lock 10 ML Syringe IV (07:35)
== END ==
PROVIDERS: Referring Provider Internal Medicine Hematology & Oncology; Visit Provider Internal Medicine Hematology & Oncology
DX: C79.9 Secondary malignant neoplasm of unspecified site (principal); C78.00 Secondary malignant neoplasm of unspecified lung; C79.70 Secondary malignant neoplasm of unspecified adrenal gland; C77.9 Secondary and unspecified malignant neoplasm of lymph node, unspecified
CPT/HCPCS: 71260; 73701; 74177; Q9967; A4216

== ENCOUNTER → 2020-07-21 06:38 | Outpatient (CLI) | payer BC, SELFPAY ==
[2020-06-12 10:02] VITALS: BMI 29.0
--- NOTE | 2020-07-21 06:39 | CT_ITS ---
STUDY: CT ABDOMEN AND PELVIS WITH CONTRAST REASON FOR EXAM: Male, 64 years old. METASTATIC MELANOMA RADIATION DOSAGE (If Supplied By Facility): CTDIvol = ( 10.47 ) mGy, DLP = ( 1475.37 ) mGycm TECHNIQUE: Transaxial images were obtained from the dome of the diaphragm to the symphysis pubis without oral contrast. IV 100mL Isovue-300 was administered. Sagittal and coronal images were reconstructed. Individualized dose optimization techniques were used for this CT. COMPARISON: None. FINDINGS: CT of the chest reported separately. There are bilateral pulmonary masses suspicious for metastatic malignancy. Normal liver. Normal gallbladder and extrahepatic biliary system. Normal spleen. Questionable 1.8 cm mass in the head of the pancreas versus metastatic retroperitoneal lymph node. There is a 2.6 cm mass in the RIGHT adrenal gland which could be an adenoma or metastasis. Normal right kidney. There is a 2 cm cortical mass of the LEFT kidney which could be hemorrhagic cyst or tumor. Normal visualized stomach. Normal small intestine. Normal colon. The appendix is visualized and appears normal. Normal abdominal aorta. Normal inferior vena cava. Normal retroperitoneum. Normal urinary bladder. There is NO ascites or free air. Normal abdominal wall. Normal osseous structures. CT/Abdomen/Pelvis W IV Cont ONLY IMPRESSION: There are bilateral pulmonary masses suspicious for metastatic malignancy. Questionable 1.8 cm mass in the head of the pancreas versus metastatic retroperitoneal lymph node. There is a 2.6 cm mass in the RIGHT adrenal gland which could be an adenoma or metastasis. There is a 2 cm cortical mass of the LEFT kidney which could be hemorrhagic cyst or tumor. There is NO ascites or free air. Electronically Signed: Jeffrey Gallagher MD at 5:34 EDT , Service support ,
--- NOTE | 2020-07-21 06:39 | CT_ITS ---
STUDY: CT LEFT leg WITH CONTRAST REASON FOR EXAM: Male, 64 years old. METASTATIC MELANOMA -- LEFT THIGH RADIATION DOSAGE (If Supplied By Facility): CTDIvol = ( 10.47 ) mGy, DLP = ( 1475.37 ) mGycm TECHNIQUE: Transaxial imaging was performed following intravenous administration of . Individualized dose optimization techniques were used for this CT. COMPARISON: None. FINDINGS: The hip joints and visualized portions of the femur are intact. There is NO fracture, dislocation or intraosseous lesion. The soft tissues are unremarkable. There is NO discrete mass. There is NO abscess or hematoma. The vascular structures are patent. CT/Extremity Lower WITH Contrast IMPRESSION: There is NO bony or soft tissue abnormality. Electronically Signed: Jeffrey Gallagher MD at 5:49 EDT , Service support ,
--- NOTE | 2020-07-21 06:39 | CT_ITS ---
STUDY: CT RIGHT leg WITH CONTRAST REASON FOR EXAM: Male, 64 years old. METASTATIC MELANOMA RADIATION DOSAGE (If Supplied By Facility): CTDIvol = ( 10.47 ) mGy, DLP = ( 1475.37 ) mGycm TECHNIQUE: Transaxial imaging was performed following intravenous administration of IV 100mL Isovue-300. Individualized dose optimization techniques were used for this CT. COMPARISON: None. FINDINGS: The hip joint and visualized portions of the femur are intact. There is NO fracture, dislocation or intraosseous lesion. The soft tissues are unremarkable. There is NO discrete mass. There is NO abscess or hematoma. The vascular structures are patent. CT/Extremity Lower WITH Contrast IMPRESSION: There is NO bony or soft tissue abnormality. Electronically Signed: Jeffrey Gallagher MD at 5:51 EDT , Service support ,
--- NOTE | 2020-07-21 06:39 | CT_ITS ---
STUDY: CT CHEST WITH CONTRAST REASON FOR EXAM: Male, 64 years old. METASTATIC MELANOMA RADIATION DOSAGE (If Supplied By Facility): CTDIvol = ( 10.47 ) mGy, DLP = ( 1475.37 ) mGycm TECHNIQUE: Transaxial imaging was performed following intravenous administration of IV 100mL Isovue-300. Individualized dose optimization techniques were used for this CT. COMPARISON: None. FINDINGS: There are bilateral upper lobe masses measuring up to 4.2 cm suspicious for metastatic malignancy. There is elevation of the LEFT hemidiaphragm causing atelectasis of the LEFT lung base. There are NO infiltrates, effusions or pneumothoraces. The heart size is normal. Normal mediastinum. Normal hilar regions. Normal enhanced pulmonary arteries. Normal aorta arch and descending thoracic aorta. Normal osseous structures. CT of the abdomen and pelvis is reported separately. CT/Chest WITH Contrast IMPRESSION: There are bilateral upper lobe masses measuring up to 4.2 cm suspicious for metastatic malignancy. There is elevation of the LEFT hemidiaphragm causing atelectasis of the LEFT lung base. There are NO infiltrates, effusions or pneumothoraces. The heart size is normal. Electronically Signed: Jeffrey Gallagher MD at 5:47 EDT , Service support ,
[2020-07-21] MEDS: 0.9% Saline Lock 10 ML Syringe IV (07:20)
[2020-07-21] MEDS: 0.9 % NaCl (Sterile) Posiflush 10 mL IV (07:20)
[2020-07-24 10:28] LABS: Magnesium 2.2 mg/dL (1.6-2.6); Phosphorus 2.6 mg/dL (2.5-4.9); T4 Free Direct 0.86 ng/dL (0.76-1.46); Thyroid Stim Hormone (TSH) 4.43 uIU/mL (0.358-3.74)
== END ==
PROVIDERS: Referring Provider Internal Medicine Hematology & Oncology; Visit Provider Internal Medicine Hematology & Oncology
DX: C43.9 Malignant melanoma of skin, unspecified (principal); C79.9 Secondary malignant neoplasm of unspecified site; C78.00 Secondary malignant neoplasm of unspecified lung; C79.70 Secondary malignant neoplasm of unspecified adrenal gland; C77.9 Secondary and unspecified malignant neoplasm of lymph node, unspecified
CPT/HCPCS: 71260; 73701; 74177; 82533; 83735; 84100; 84439; 84443; Q9967

== ENCOUNTER → 2020-10-30 12:29 | Outpatient (CLI) | payer BC, MEDICARE, OTHER, SELFPAY ==
[2020-10-16 09:23] VITALS: BMI 29.2
--- NOTE | 2020-10-30 12:31 | CT_ITS ---
STUDY: CT CHEST WITH CONTRAST REASON FOR EXAM: Male, 65 years old. Assess response to treatment for malignant melanoma, currently receiving chemotherapy every 3 weeks. Prior hernia repair, left thigh melanoma removed. RADIATION DOSAGE (If Supplied By Facility): CTDIvol = ( 15.43 ) mGy, DLP = ( 2619.36 ) mGycm TECHNIQUE: Transaxial imaging was performed following intravenous administration of IV 100mL Isovue-300. Multiplanar coronal and sagittal images were reformatted. Individualized dose optimization techniques were used for this CT. COMPARISON: Comparison is made with prior examination dated 07/21/2020. FINDINGS: A right-sided portacatheter is seen with the tip in the superior vena cava. Once again, there is a solid mass measuring 4.5 cm x 3.3 cm in the medial aspect of the right middle lobe adjacent to the heart border. This has decreased slightly in size as compared to prior study. A similar appearing mass is seen in the medial aspect of the lingular segment of the left upper lobe abutting the left cardiac border. It presently measures 3.8 cm x 3.9 cm. This is essentially unchanged. Mild degree of increased markings at the left lung base suggestive of atelectasis and/or scarring. There is no demonstrated pleural abnormality. Normal heart and pericardium. Normal mediastinum. Normal hilar regions. Normal enhanced pulmonary arteries. Normal aorta arch and descending thoracic aorta. There are multi-level degenerative changes of the thoracic spine. Right adrenal mass measuring 4.8 cm x 2.[address]/Chest WITH Contrast IMPRESSION: Slight decrease in size of the right paracardiac nodule. No new nodules are seen. Electronically Signed: Emil Julio MD at 14:36 EST , Service support ,
--- NOTE | 2020-10-30 12:31 | CT_ITS ---
STUDY: CT LEFT FEMUR WITH CONTRAST REASON FOR EXAM: Male, 65 years old. Assess response to treatment for malignant melanoma, currently receiving chemotherapy every 3 weeks. 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 RADIATION DOSAGE (If Supplied By Facility): CTDIvol = ( 15.43 ) mGy, DLP = ( 2619.36 ) mGycm TECHNIQUE: Transaxial CT imaging of the femur was performed post contrast administration. The examination was performed with intravenous administration of IV 100mL Isovue-300. Sagittal and coronal images were reconstructed. Individualized dose optimization techniques were used for this CT. COMPARISON: Comparison is made with prior examination dated 07/21/2020. FINDINGS: Normal visualized femur. Small benign-appearing inguinal lymph nodes. Prostatic calcifications. Small bilateral hydroceles slightly worse on the left side. There is no enhancing abnormality. IMPRESSION: No acute abnormality is seen. Electronically Signed: Emil Julio MD at 14:38 EST , Service support , STUDY: CT RIGHT FEMUR WITH CONTRAST REASON FOR EXAM: Male, 65 years old. Assess response to treatment for malignant melanoma, currently receiving chemotherapy every 3 weeks. 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 RADIATION DOSAGE (If Supplied By Facility): CTDIvol = ( 15.43 ) mGy, DLP = ( 2619.36 ) mGycm TECHNIQUE: Transaxial CT imaging of the femur was performed post contrast administration. The examination was performed with intravenous administration of IV 100M ISOVUE 300. Sagittal and coronal images were reconstructed. Individualized dose optimization techniques were used for this CT. COMPARISON: Comparison is made with prior examination dated 07/21/2020. FINDINGS: Normal visualized femur. Small bilateral hydroceles more prominent on the left side. Central prostatic calcifications. Small benign-appearing bilateral inguinal lymph nodes. There is no enhancing abnormality. CT/Extremity Lower WITH Contrast IMPRESSION: No acute abnormality is seen. Electronically Signed: Emil Julio MD at 14:43 EST , Service support ,
--- NOTE | 2020-10-30 12:31 | CT_ITS ---
STUDY: CT LEFT FEMUR WITH CONTRAST REASON FOR EXAM: Male, 65 years old. Assess response to treatment for malignant melanoma, currently receiving chemotherapy every 3 weeks. 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 RADIATION DOSAGE (If Supplied By Facility): CTDIvol = ( 15.43 ) mGy, DLP = ( 2619.36 ) mGycm TECHNIQUE: Transaxial CT imaging of the femur was performed post contrast administration. The examination was performed with intravenous administration of IV 100mL Isovue-300. Sagittal and coronal images were reconstructed. Individualized dose optimization techniques were used for this CT. COMPARISON: Comparison is made with prior examination dated 07/21/2020. FINDINGS: Normal visualized femur. Small benign-appearing inguinal lymph nodes. Prostatic calcifications. Small bilateral hydroceles slightly worse on the left side. There is no enhancing abnormality. IMPRESSION: No acute abnormality is seen. Electronically Signed: Emil Julio MD at 14:38 EST , Service support , STUDY: CT RIGHT FEMUR WITH CONTRAST REASON FOR EXAM: Male, 65 years old. Assess response to treatment for malignant melanoma, currently receiving chemotherapy every 3 weeks. 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 RADIATION DOSAGE (If Supplied By Facility): CTDIvol = ( 15.43 ) mGy, DLP = ( 2619.36 ) mGycm TECHNIQUE: Transaxial CT imaging of the femur was performed post contrast administration. The examination was performed with intravenous administration of IV 100M ISOVUE 300. Sagittal and coronal images were reconstructed. Individualized dose optimization techniques were used for this CT. COMPARISON: Comparison is made with prior examination dated 07/21/2020. FINDINGS: Normal visualized femur. Small bilateral hydroceles more prominent on the left side. Central prostatic calcifications. Small benign-appearing bilateral inguinal lymph nodes. There is no enhancing abnormality. CT/Extremity Lower WITH Contrast IMPRESSION: No acute abnormality is seen. Electronically Signed: Emil Julio MD at 14:43 EST , Service support ,
--- NOTE | 2020-10-30 12:31 | CT_ITS ---
STUDY: CT ABDOMEN AND PELVIS WITH CONTRAST REASON FOR EXAM: Male, 65 years old. Assess response to treatment for malignant melanoma, currently receiving chemotherapy every 3 weeks. Prior hernia repair, left thigh melanoma removed. RADIATION DOSAGE (If Supplied By Facility): CTDIvol = ( 15.43 ) mGy, DLP = ( 2619.36 ) mGycm TECHNIQUE: Transaxial images were obtained from the dome of the diaphragm to the symphysis pubis without oral contrast. IV 100mL Isovue-300 was administered. Sagittal and coronal images were reconstructed. Individualized dose optimization techniques were used for this CT. COMPARISON: Comparison is made with prior study dated 07/21/2020. FINDINGS: Stable pulmonary masses in the medial aspect of the right and left lower lobes. The visualized portions of the heart are within normal limits. Normal liver. Normal gallbladder and extrahepatic biliary system. Normal spleen. Normal pancreas. The previously seen left adrenal mass as increased in size. It presently measures 2.7 cm x 4.7 cm. Normal right kidney. Stable 2.2 cm cortical mass in the inferior lateral aspect of the left kidney. This is not a typical cyst. Normal visualized stomach. Normal small intestine. There are multiple colonic diverticula consistent with diverticulosis. The appendix is visualized and appears normal. Normal abdominal aorta. Normal inferior vena cava. Normal retroperitoneum. Normal urinary bladder. There are prostatic calcifications. There is a small umbilical hernia containing fat. There are diffuse degenerative changes of the visualized lumbar spine. CT/Abdomen/Pelvis W IV Cont ONLY IMPRESSION: Stable bilateral pulmonary masses. Interval increase in size of the left adrenal mass. Stable 2.2 cm cortical mass in the inferior lateral aspect of the left kidney. Electronically Signed: Emil Julio MD at 14:24 EST , Service support ,
[2020-10-30] MEDS: 0.9% Saline Lock 10 ML Syringe IV (13:15)
== END ==
PROVIDERS: Referring Provider Internal Medicine Hematology & Oncology; Visit Provider Internal Medicine Hematology & Oncology
DX: C43.9 Malignant melanoma of skin, unspecified (principal); C79.9 Secondary malignant neoplasm of unspecified site; C78.00 Secondary malignant neoplasm of unspecified lung; C79.70 Secondary malignant neoplasm of unspecified adrenal gland; C77.9 Secondary and unspecified malignant neoplasm of lymph node, unspecified
CPT/HCPCS: 71260; 73701; 74177; Q9967; A4216

== ENCOUNTER → 2021-01-22 12:26 | Outpatient (CLI) | payer BC, MEDICARE, OTHER, SELFPAY ==
[2021-01-08 09:23] VITALS: BMI 29.0
--- NOTE | 2021-01-22 12:28 | CT_ITS ---
STUDY: CT RIGHT AND LEFT LOWER EXTREMITIES REASON FOR EXAM: Male, 65 years old. METASTATIC MELANOMA RESPONSE TO TREATMENT -- BILATERAL THIGHS RADIATION DOSAGE (If Supplied By Facility): CTDIvol = ( 16.26 ) mGy, DLP = ( 890.79 ) mGycm. Individualized dose optimization techniques were used for this CT.? TECHNIQUE: Axial multidetector CT scan of the lower extremities. Coronal and sagittal reformatted images. Postcontrast evaluation with 100 mL ISOVUE-370. COMPARISON: Cases read in tandem of the lower extremities. Comparison with studies dating back to 03/18/2019. 10/30/2020. FINDINGS: Pubic symphysis intact. Left proximal tibia intact. Left proximal fibula intact. Left femur intact. Left superior and inferior pubic ramus intact. Right superior and inferior pubic ramus intact. Right femur intact. Right proximal tibia and fibula intact. Prostatomegaly with prostate calcifications. Small fat-containing right inguinal hernia. Normal visualized portions of the large and small bowel. Contrast filled urinary bladder. Small bilateral hydroceles (axial image 68 series 2). Bilateral stable small inguinal lymph nodes with normal architecture (axial image 52 series 2). Stable punctate left anterior thigh enhancing soft tissue lesion measuring 9 mm x 10 mm (axial image 81 series 2). Stable left medial thigh lipoma (axial image 92 series 2). No new lesions identified. No obvious skin lesion identified given CT technique. IMPRESSION: No new lesions identified Stable tiny left anterior thigh enhancing lesion Stable small bilateral inguinal lymph nodes with normal architecture Stable left medial thigh lipoma No obvious skin lesion given CT technique (dermatologic evaluation recommended) Continued routine surveillance recommended Electronically Signed: Justin Reid DO at 9:05 EDT Tel , Service support , STUDY: CT RIGHT AND LEFT LOWER EXTREMITIES REASON FOR EXAM: Male, 65 years old. METASTATIC MELANOMA RESPONSE TO TREATMENT -- BILATERAL THIGHS RADIATION DOSAGE (If Supplied By Facility): CTDIvol = ( 16.26 ) mGy, DLP = ( 890.79 ) mGycm. Individualized dose optimization techniques were used for this CT.? TECHNIQUE: Axial multidetector CT scan of the lower extremities. Coronal and sagittal reformatted images. Postcontrast evaluation with 100 mL ISOVUE-370. COMPARISON: Cases read in tandem of the lower extremities. Comparison with studies dating back to 03/18/2019. 10/30/2020. FINDINGS: Pubic symphysis intact. Left proximal tibia intact. Left proximal fibula intact. Left femur intact. Left superior and inferior pubic ramus intact. Right superior and inferior pubic ramus intact. Right femur intact. Right proximal tibia and fibula intact. Prostatomegaly with prostate calcifications. Small fat-containing right inguinal hernia. Normal visualized portions of the large and small bowel. Contrast filled urinary bladder. Small bilateral hydroceles (axial image 68 series 2). Bilateral stable small inguinal lymph nodes with normal architecture (axial image 52 series 2). Stable punctate left anterior thigh enhancing soft tissue lesion measuring 9 mm x 10 mm (axial image 81 series 2). Stable left medial thigh lipoma (axial image 92 series 2). No new lesions identified. No obvious skin lesion identified given CT technique. CT/Extremity Lower WITH Contrast
--- NOTE | 2021-01-22 12:28 | CT_ITS ---
STUDY: CT RIGHT AND LEFT LOWER EXTREMITIES REASON FOR EXAM: Male, 65 years old. METASTATIC MELANOMA RESPONSE TO TREATMENT -- BILATERAL THIGHS RADIATION DOSAGE (If Supplied By Facility): CTDIvol = ( 16.26 ) mGy, DLP = ( 890.79 ) mGycm. Individualized dose optimization techniques were used for this CT.? TECHNIQUE: Axial multidetector CT scan of the lower extremities. Coronal and sagittal reformatted images. Postcontrast evaluation with 100 mL ISOVUE-370. COMPARISON: Cases read in tandem of the lower extremities. Comparison with studies dating back to 03/18/2019. 10/30/2020. FINDINGS: Pubic symphysis intact. Left proximal tibia intact. Left proximal fibula intact. Left femur intact. Left superior and inferior pubic ramus intact. Right superior and inferior pubic ramus intact. Right femur intact. Right proximal tibia and fibula intact. Prostatomegaly with prostate calcifications. Small fat-containing right inguinal hernia. Normal visualized portions of the large and small bowel. Contrast filled urinary bladder. Small bilateral hydroceles (axial image 68 series 2). Bilateral stable small inguinal lymph nodes with normal architecture (axial image 52 series 2). Stable punctate left anterior thigh enhancing soft tissue lesion measuring 9 mm x 10 mm (axial image 81 series 2). Stable left medial thigh lipoma (axial image 92 series 2). No new lesions identified. No obvious skin lesion identified given CT technique. IMPRESSION: No new lesions identified Stable tiny left anterior thigh enhancing lesion Stable small bilateral inguinal lymph nodes with normal architecture Stable left medial thigh lipoma No obvious skin lesion given CT technique (dermatologic evaluation recommended) Continued routine surveillance recommended Electronically Signed: Justin Reid DO at 9:05 EDT Tel , Service support , STUDY: CT RIGHT AND LEFT LOWER EXTREMITIES REASON FOR EXAM: Male, 65 years old. METASTATIC MELANOMA RESPONSE TO TREATMENT -- BILATERAL THIGHS RADIATION DOSAGE (If Supplied By Facility): CTDIvol = ( 16.26 ) mGy, DLP = ( 890.79 ) mGycm. Individualized dose optimization techniques were used for this CT.? TECHNIQUE: Axial multidetector CT scan of the lower extremities. Coronal and sagittal reformatted images. Postcontrast evaluation with 100 mL ISOVUE-370. COMPARISON: Cases read in tandem of the lower extremities. Comparison with studies dating back to 03/18/2019. 10/30/2020. FINDINGS: Pubic symphysis intact. Left proximal tibia intact. Left proximal fibula intact. Left femur intact. Left superior and inferior pubic ramus intact. Right superior and inferior pubic ramus intact. Right femur intact. Right proximal tibia and fibula intact. Prostatomegaly with prostate calcifications. Small fat-containing right inguinal hernia. Normal visualized portions of the large and small bowel. Contrast filled urinary bladder. Small bilateral hydroceles (axial image 68 series 2). Bilateral stable small inguinal lymph nodes with normal architecture (axial image 52 series 2). Stable punctate left anterior thigh enhancing soft tissue lesion measuring 9 mm x 10 mm (axial image 81 series 2). Stable left medial thigh lipoma (axial image 92 series 2). No new lesions identified. No obvious skin lesion identified given CT technique. CT/Extremity Lower WITH Contrast
--- NOTE | 2021-01-22 12:28 | CT_ITS ---
STUDY: CT CHEST, ABDOMEN T PELVIS WITH CONTRAST REASON FOR EXAM: Male, 65 years old. METASTATIC MELANOMA RESPONSE TO TREATMENT RADIATION DOSAGE (If Supplied By Facility): CTDIvol = ( 15 ) mGy, DLP = ( 2600 ) mGycm TECHNIQUE: Transaxial imaging was performed following intravenous administration of IV 100mL Isovue-370. Multiplanar coronal and sagittal images were reformatted. Individualized dose optimization techniques were used for this CT. COMPARISON: 10/30/2020 FINDINGS: CHEST Nodule of the medial right middle lobe measures 4.5 x 3.3 cm, stable since the prior study, protruding into the mediastinum and abutting the right lateral surface of the pericardium (image 81 series 2). A similar density nodule of the left pericardial region is also stable in size measuring 3.8 x 3.9 cm, also abutting the pericardial surface on image 85 of series 2. Unclear whether the mass is arise within the mediastinum versus the adjacent lung parenchyma (favor former based on coronal image 36 series 302). Persistent elevation of the left hemidiaphragm with atelectasis or fibrotic scarring in the left lung base. No new pulmonary nodule/mass. Right jugular chest port is stable. Normal heart and pericardium. Normal mediastinum. Normal hilar regions. Normal unenhanced pulmonary arteries. Normal aorta arch and descending thoracic aorta. There are multi-level degenerative changes of the thoracic spine. ABDOMEN Normal liver. Normal gallbladder and extrahepatic biliary system. Normal spleen. Normal pancreas. Right adrenal gland mass currently measures 3.4 x 6.1 cm, increased in size since 10/30/2020 (previously measured 2.9 x 5.0 cm. Normal right kidney. 2 cm cortical intermediate density lesion of the left kidney is stable. Normal visualized stomach. Normal small intestine. There are multiple colonic diverticula consistent with diverticulosis. There is non-visualization of the appendix. Normal abdominal aorta. Normal inferior vena cava. Normal retroperitoneum. There is a small umbilical hernia containing fat. No destructive bony process. PELVIS Normal urinary bladder. Normal visualized small intestine. Normal visualized colon. There is no pelvic fluid. There is no pelvic lymphadenopathy or mass lesion. Normal visualized pelvic arteries. Normal abdominal wall. No destructive bony process. CT/CT Chest, Abd, Pel w/Contrast IMPRESSION: 1. Since 10/30/2020, unfavorable change. INCREASED size of right adrenal gland mass/neoplasm. 2. Stable bilateral pericardial/pulmonary masses/neoplasm. Electronically Signed: Mickey Urbano MD ([place]) at 15:05 EDT , Service support ,
[2021-01-22] MEDS: 0.9% Saline Lock 10 ML Syringe IV (13:05)
== END ==
PROVIDERS: Referring Provider Internal Medicine Hematology & Oncology; Visit Provider Internal Medicine Hematology & Oncology
DX: C43.9 Malignant melanoma of skin, unspecified (principal); C79.9 Secondary malignant neoplasm of unspecified site; C78.00 Secondary malignant neoplasm of unspecified lung; C77.9 Secondary and unspecified malignant neoplasm of lymph node, unspecified; Z29.8 Encounter for other specified prophylactic measures
CPT/HCPCS: 71260; 73701; 74177; Q9967; A4216

== ENCOUNTER → 2021-02-10 08:42 | Outpatient (CLI) | payer BC, MEDICARE, OTHER, SELFPAY ==
[2021-01-29 10:08] VITALS: BMI 29.0
[2021-02-10] VITALS (9 sets, daily range): BP systolic 106–138; BP diastolic 73–95; PULSE 48–61; RESP 15–19; TEMP 36.7; O2SAT 93–100; BMI 28.8
--- NOTE | 2021-02-10 | ASPIGT_PTH ---
PATIENT: CHRIS GARDNER LOC: [place] U#:[id number] AGE/SX: 69/M ROOM: RE02/10/[address]: GEORGI Goldstein : 1955 BED: DIS: SPEC #: [id number] RECD: 02/10/21 11:13 STATUS: DREA DELVIS #: [id number] ROBIN: 02/10/21 00:[address]: Ryann Vale NP DEPT: SURGICAL PATHOLOGY RECD BY: Ashwin Johnson ENTERED: 02/10/21 11:14 SP TYPE: ASP RAD ROBERTO DR: No Primary Care Phys Tissues: Adrenal gland, NOS Procedures: FNA Specimen Adequacy Special Stain Group II Surgery Specimen Level IV Imprint (control) HEADER OPERATION: Right adrenal CT-guided core biopsy PRE-OP DIAGNOSIS: Right adrenal mass TISSUE SUBMITTED: Right adrenal mass 18-gauge x5 MICROSCOPIC DIAGNOSIS Right adrenal mass, CT-guided core biopsy: Consistent with metastatic malignant melanoma. See comment. SOFYA:shimon 02/11/2021 COMMENT The specimen is evaluated at the time of biopsy by Dr. Crouch. Immediate Evaluation = Adequate for evaluation. Atypical cells noted. Immunohistochemistry ([id number]) supports the above diagnosis. As per EMR, the patient has history of malignant melanoma. Case has been reviewed in consultation with Dr. Adame who concurs with the above diagnosis. IDC:AM MICROSCOPIC DESCRIPTION Slides are reviewed. GROSS DESCRIPTION Received in fixative is one container labeled with the patient's name and designated right adrenal mass, CT-guided core biopsy. The specimen consists of multiple elongated fragments of farr soft tissue that in aggregate measure 1.5 x 0.5 x 0.1 cm. The specimen is totally submitted in one cassette. One touch imprint is prepared at the time of core biopsy. / SOFYA:shimon 02/10/21 TC:0 CPT: 76540, 09188
--- NOTE | 2021-02-10 | IMM_PTH ---
PATIENT: CHRIS GARDNER LOC: CT U#:[id number] AGE/SX: 69/M ROOM: RE02/10/[address]: GEORGI Goldstein : 1955 BED: DIS: SPEC #: [id number] RECD: 02/10/21 12:04 STATUS: FRANSISCAChelsy REQ #: [id number] ROBIN: 02/10/21 00:[address]: Ryann Vale NP DEPT: IMMUNOHISTOCHEMISTRY RECD BY: Perla Meadows ENTERED: 02/10/21 12:05 SP TYPE: IMMUNO OTHR DR: No Primary Care Phys Tissues: Adrenal gland, NOS Procedures: Synapto (add) Farhat Ret (add) CD56 (add) CHROMO (add) CK7 (add) CK8 (add) KI-67 (add) P53 (add) Vimentin (add) Pankeratin (initial) MELAN-A (add) S-100 (add) PHYSICIAN & INSTITUTION [address] [address] SPECIMEN INFORMATION: Tissue Source: Right adrenal mass biopsy Clinical Info: Right adrenal mass Specimen Number: [id number] CPT code: 22470, 50616 x11 METHODOLOGY: Deparaffinized sections of prefer/formalin-fixed tissue or PAP/DQ stained slides are incubated with monoclonal/polyclonal antibodies/oligonucleotide probes. Localization is made via biotin free immunoperoxidase method. Appropriate controls are performed and reacted as expected. Results on target cell population are indicated in the following table: RESULTS: ANTIBODY / CLONE RESULT AE1-3 (AE1/AE3/PCK26) negative CK7 (OV-TL12/30) negative CK8 (18apidG07) negative Vimentin (V9) positive Melan A (A103) positive, focal S-100 (4C4.9) positive CD56 (123C3.D5) positive Chromo (LK2H10) negative Synapto (polyclonal) negative CALRET (polyclonal) negative P53 (DO-7) positive, in a few cells Ki-67 (30-9) positive, moderate These tests were developed and their performance characteristics determined by [facility]. They may not have been cleared or approved by the U.[place]. Food and Drug Administration. The FDA has determined that such clearance or approval is not necessary. The above immunohistochemical/dualISH markers are ordered and reviewed by the Pathologist. INTERPRETATION: Right adrenal mass, biopsy: Consistent with metastatic malignant melanoma. SOFYA:shimon 02/11/2021 Case has been reviewed in consultation with Dr. Adame who concurs with the above diagnosis. IDC:AM
[2021-02-10 09:00] LABS: Absolute Lymphocyte Count 1.26 X10^3/uL (0.83-4.51); Absolute Neutrophil Count 3.9 X10^3/uL (2.0-7.7); Basophil# 0.03 X10^3/uL; Basophil% 0.5 % (0-1); Eosinophil# 0.24 X10^3/uL; Eosinophils% 4.1 % (0-5); Hematocrit 47.9 % (40-54); Hemoglobin 15.6 g/dL (13.0-16.5); Lymphocyte # 1.26 X10^3/ul (0.83-4.51); Lymphocyte % 21.4 % (19-41); Mean Corp Hgb Conc 32.6 g/dL (32-36); Mean Corpuscular Volume 95.2 fL (80-94); Mean Platelet Vol. 10.1 fl (6.2-12.0); Monocyte% 6.8 % (0-10); NRBC Flagged by Analyzer 0 % (0-5); Neutrophil # 3.94 X10^3/uL (2.7-7.7); Neutrophil % 66.9 % (47-70); Platelet Count 226 K/mm3 (150-450); RBC Distribution Width CV 13.6 % (11.6-14.6); RBC Distribution Width SD 47.4 fl (35.1-43.9); Red Blood Count 5.03 M/mm3 (4.6-6.2); White Blood Count 5.9 K/mm3 (4.4-11.0)
[2021-02-10 09:09] LABS: Prothrombin Time (Protime)PT. 12.7 SECONDS (11.7-14.9)
[2021-02-10 09:10] LABS: Partial Thromboplast Time 27.6 Seconds (24.1-36.2)
[2021-02-10] MEDS: Midazolam 2 MG/2 ML Syringe IV (10:31)
[2021-02-10] MEDS: fentaNYL 100 MCG/2 ML Ampul IV (10:32)
[2021-02-10] MEDS: 0.9% Saline Lock 10 ML Syringe IV (10:34)
--- NOTE | 2021-02-10 10:45 | CT_ITS ---
PROCEDURE: CT GUIDED core biopsy of the right adrenal gland. DATE: 02/10/2021. INDICATION: Male, 65 years old. Right adrenal mass. History of melanoma. PHYSICIAN: Emil Julio M.D. RADIATION DOSAGE (If Supplied By Facility): CTDIvol = ( 12 ) mGy, DLP = ( 1392.81 ) mGycm. Individualized dose optimization techniques were utilized. PROCEDURE: The risks, benefits, and alternatives to the procedure were explained to the patient. The specific risk of hemorrhage requiring further treatment or intervention was detailed and accepted. Follow-up instructions were discussed with the patient as well. Written informed consent was obtained. The patient was brought into the CT suite and placed in the prone. . An appropriate entry site was identified. The overlying skin was prepped and draped in the usual sterile fashion. 1% lidocaine was administered subcutaneously for local anesthesia. Conscious sedation was performed. The patient received 2 mg of VERSED and 50 mcg of FENTANYL intravenously. Conscious sedation was started 9:34 AM and terminated at 1002 the patient was independently monitored by department nurse. Under CT guidance, a total of 5 passes of the right adrenal gland were performed utilizing an 18-gauge core biopsy needle system. The specimens were then placed in the appropriate fluid and transported to the laboratory for analysis. Hemostasis was obtained. The patient tolerated the procedure well without immediate complications. CT/Biopsy/Inj or Needle Placement IMPRESSION: Successful CT guided core biopsy of the right adrenal gland, as described above. The conscious sedation protocol was followed. Electronically Signed: Emil Julio MD at 12:22 EDT , Service support ,
== END ==
PROVIDERS: Referring Provider Nurse Practitioner Family; Visit Provider Nurse Practitioner Family
DX: E27.8 Other specified disorders of adrenal gland (principal); C79.9 Secondary malignant neoplasm of unspecified site; Z76.89 Persons encountering health services in other specified circumstances
CPT/HCPCS: 49180; 36415; 77012; 85025; 85610; 85730; 88172; 88305; 88313; 88341; 88342; 99155; 99156; J7040; A4216

== ENCOUNTER → 2021-06-04 12:17 | Outpatient (CLI) | payer BC, MEDICARE, OTHER, SELFPAY ==
[2021-05-21 09:30] VITALS: BMI 28.4
--- NOTE | 2021-06-04 12:19 | CT_ITS ---
INDICATION: METASTATIC MELANOMA - RESPONSE TO TREATMENT EXAMINATION: CT Chest Abdomen And Pelvis W/ Contrast Injection TECHNIQUE: Images were obtained of the chest, abdomen and pelvis following IV contrast. A radiation dose optimization technique was used for this scan. IV Contrast dosage and agent: IV 100mL Isovue-300 COMPARISON: 01/22/2021. FINDINGS: Lungs: Stable scattered 2 to 3 mm pulmonary nodules throughout the lungs. No new pulmonary nodules. Persistent elevation of the left hemidiaphragm with atelectasis or fibrotic scarring in the left lung base. Mediastinum: The cardiomediastinal silhouette is not enlarged. No mediastinal, hilar or axillary adenopathy. Mild aortic arch and coronary artery calcifications. No obvious filling defect seen within the visualized pulmonary arteries. Unchanged in size of a 3.6 x 2.9 cm left pericardial metastatic deposit. Slight decrease in size of a 3.7 x 2.8 cm right pericardial metastatic deposit. Pleura: Unremarkable Liver: Unremarkable Gallbladder: Unremarkable Spleen: Unremarkable Pancreas: Unremarkable Adrenal Glands: Interval increase in size of a metastatic lesion in the right adrenal gland measuring 7.5 x 4.2 cm, previously 6.2 x 3.3 cm. Kidneys: 2 cm cortical intermediate density lesion of the left kidney is stable. Vasculature: Mild scattered aortoiliac atherosclerotic calcifications. GI Tract: There is subtle irregular wall thickening of a very short segment of small bowel in the right lower abdominal quadrant (axial image 77, sagittal image 73). Lymphadenopathy: None Peritoneum: No ascites. Bladder: Unremarkable Reproductive organs: Unremarkable Bones/Soft tissues: There are diffuse degenerative changes of the spine. Small fat-containing umbilical hernia. CT/CT Chest, Abd, Pel w/Contrast IMPRESSION: Mixed treatment response with an increase in size of the right adrenal metastasis, slight decrease in size of a right pericardial metastatic deposit and unchanged size of a left pericardial metastatic deposit. Subtle new irregular wall thickening of a very short segment of small bowel in the right lower abdominal quadrant is indeterminate. Recommend close attention on follow-up. Consider PET-CT. Electronically Signed: Shreyas Ashley MD at 23:26 EDT Tel , Service support ,
--- NOTE | 2021-06-04 12:19 | CT_ITS ---
INDICATION: METASTATIC MELANOMA - RESPONSE TO TREATMENT -- BILATERAL THIGHS EXAMINATION: CT Lower Extremity W/ Contrast Injection TECHNIQUE: Helically acquired images were obtained of the bilateral lower extremities. 2-D reformats were performed by the technologist. A radiation dose optimization technique was used for this scan. IV Contrast dosage and agent: 100 cc ISOVUE-300. COMPARISON: 01/22/2021. FINDINGS: BONES AND ALIGNMENT: No acute fractures. The alignment is anatomic. JOINTS: No degenerative changes are seen. SOFT TISSUES: Stable bilateral small inguinal lymph nodes. Decrease in size of punctate left anterior thigh enhancing soft tissue lesion which is difficult to measure on this examination (axial image 79). Stable left medial thigh lipoma (axial image 87). No new lesions identified. OTHER: Prostatomegaly with prostate calcifications. Small fat-containing right inguinal hernia. Small bilateral hydroceles. CT/Extremity Lower WITH Contrast IMPRESSION: No new metastatic lesions identified. Decrease in size of punctate left anterior thigh enhancing soft tissue lesion which is difficult to measure on this examination. Electronically Signed: Shreyas Ashley MD at 23:40 EDT Tel , Service support ,
[2021-06-04] MEDS: 0.9% Saline Lock 10 ML Syringe IV (13:30)
== END ==
PROVIDERS: Referring Provider Internal Medicine Hematology & Oncology; Visit Provider Internal Medicine Hematology & Oncology
DX: C79.9 Secondary malignant neoplasm of unspecified site (principal); M79.89 Other specified soft tissue disorders; C79.71 Secondary malignant neoplasm of right adrenal gland; C78.00 Secondary malignant neoplasm of unspecified lung; C77.8 Secondary and unspecified malignant neoplasm of lymph nodes of multiple regions
CPT/HCPCS: 71260; 73701; 74177; Q9967; A4216

== ENCOUNTER → 2021-06-25 12:05 | Outpatient (CLI) | payer BC, MEDICARE, OTHER, SELFPAY | PROVIDERS: Referring Provider Physician Assistant; Visit Provider Physician Assistant | DX: Z11.52 Encounter for screening for COVID-19 (principal) | CPT/HCPCS: 87635; U0005; U0003 ==

== ENCOUNTER 2021-07-16 10:10 | Inpatient (IN) | payer BC, MEDICARE, OTHER, SELFPAY ==
[2021-07-16] VITALS (8 sets, daily range): BP systolic 95–124; BP diastolic 74–82; PULSE 67–85; RESP 12–17; TEMP 36.2–36.7; O2SAT 97–98; BMI 25.9; BMI 25.8
--- NOTE | 2021-07-16 10:38 | EDS_ITS ---
HPI History of Present Illness Chief Complaint: Weakness Detail of Chief Complaint: Weight loss, loss of taste and smell, myalgias arthralgias Onset/Context/Timing Onset: Weeks (Onset June 18) Context: Sudden Onset Timing: Continuous and Waxes and wanes Quality: Weakness, poor appetite, loss of taste and smell Location: Multiple Current Severity: Mild Maximum Severity: Moderate Worsened by: Nothing Relieved by: Nothing Associated Symptoms Associated Symptoms: No respiratory symptoms. No vomiting or diarrhea Narrative Narrative: Patient is a 65-year-old male sent from the infusion center because of weight loss, loss of taste and smell, myalgias arthralgias since June 18. Has had 2 rapid Covid test which were negative. Patient with immune suppressed. He is on chemotherapy for metastatic melanoma. He denies headache, visual, ocular auditory symptoms. He denies rhinorrhea, congestion postnasal drainage. He denies sore throat. He does report nausea w ithout vomiting or diarrhea. He denies abdominal pain. He denies urologic symptoms. He complains of myalgias and arthralgias. States the left upper extremity is the worst. He is noted no new rash or skin lesions. He did have blood work obtained prior to arrival. These were reviewed. Prior similar symptoms: Yes Recent Illness/Hospitalization: [facility] Medical History Dry skin dermatitis Encounter for screening for COVID-19 Fatigue Hyperglycemia Limb weakness Mass of soft tissue Melanoma Metastasis to adrenal gland PORT PLACEMENT Pulmonary embolism Shoulder pain surgery on fingers Home Medications rivaroxaban 20 mg tablet 20 mg PO DAILY tab 06/25/21 [History Last Taken Unknown] pembrolizumab [Keytruda] 25 mg IV QMONTH 07/16/21 [History Last Taken Unknown] Allergy/AdvReac Type Severity Reaction Status Date / Time Penicillins [PCN] Allergy Severe Unknown Verified 07/16/21 10:15 Family History Brother Prostate cancer Bladder cancer Father Stomach cancer Heart disease Surgical History Melanoma Social History Smoking Status: Current some day smoker tobacco type: cigarettes Tobacco: How many years used: 20 Smokeless tobacco user: chewing tobacco second hand exposure: No alcohol intake: current alcohol intake frequency: a few times a week details: occasionally substance use type: does not use seatbelt use: always do you feel safe at home: Yes ROS ROS ED Constitutional Constitutional ED: Reports weight loss; Denies chills, fever(s), subjective or sweats Eyes Eyes: Denies blurry vision, change in vision or diplopia ENT ENT ED: Denies ear pain, rhinorrhea or sore throat Cardiovascular Cardiovascular: Denies chest pain, palpitations or racing heartbeat Respiratory/Chest Respiratory/Chest: Denies cough, dyspnea or dyspnea on exertion Gastrointestinal Gastrointestinal: Reports nausea; Denies abdominal pain, constipation, diarrhea, melena or vomiting Genitourinary Genitourinary ED: Denies dysuria, hematuria or urinary frequency Musculoskeletal Musculoskeletal: Reports arthralgias and myalgias; Denies back pain or neck pain Integumentary Reports rash; Denies Abrasions Neurologic Neurologic: Reports weakness; Denies headache(s) or paresthesias Endocrine Endocrinology: Denies polydipsia, polyphagia or polyuria Hematologic/Lymphatic Hematologic/Lymphatic: Denies easy bleeding or easy bruising Allergic/Immunologic Allergic/Immunologic ED: Denies mouth swelling or urticaria EXAM Physical Exam Const Vital Signs: 07/16/21 10:12 07/16/21 11:14 Temperature 97.2 F L Temperature Source Temporal Pulse Rate 78 67 Respiratory Rate 16 17 Respiratory Effort Normal Non-Labored Respiratory Pattern Normal Blood Pressure 95/74 105/82 H Blood Pressure Mean 81 89 Pulse Ox 98 Oxygen Delivery Method Room Air Room Air Positive well nourished and well developed; Negative for obese, cachectic, contractures or unkempt General Appearance ED: well developed and NAD; Negative for unkempt, cachectic, contractures, cyanotic or diaphoretic Nutritional Appearance: Negative for cachectic or obese HEENT HEENT Narrative: Head is atraumatic normocephalic. Nares patent. Ears normal. Posterior pharynx unremarkable. Eyes PERRL and EOMs intact bilaterally General Eye ED: Negative for pale conjunctiva or scleral icterus Neck no lymphadenopathy and no JVD Chest Wall inspection of chest normal Resp normal respiratory effort and clear to auscultation bilaterally Effort and Inspection: Negative for pain with movement Cardio regular rate, regular rhythm, S1 normal heart sound, S2 normal heart sound and no murmurs GI normal to inspection, nondistended, normoactive bowel sounds and non-tender Palpation: soft Back/Spine no CVA tenderness Cervical Spine: Negative for cervical spine tenderness Thoracic Spine / Upper Back: Negative for thoracic spinal tenderness or paraspinal muscle tenderness Extremity normal to inspection General Extremety ED: Negative for edema or tenderness General Extremity: Negative for edema Neuro oriented x3, CN's II-XII intact bilaterally and no sensory deficits noted Sensorium / Orientation: alert Motor Exam: strength 5/5 throughout Psych mental status grossly normal Appearance: Negative for unkempt Skin No no rashes or lesions noted and no wounds Skin Narrative: Rash noted palms of his hands. He states this was due to chemotherapy. Rashes: rashes noted MDM MDM MDM Narrative Medical decision making narrative: Covid for PCR was obtained since rapid be an accurate at this point. Reviewed prior laboratory work. Additional labs were ordered. Will reassess once they are back. Will discuss case with his oncologist since he was sent from the infusion center. Patient's TSH is elevated. Free T4 low. Cortisol very low. Spoke with Dr. Yesi Blanton patient's oncologist. He requested I speak with the workforce development assistant. She requested ACTH prior to administration of Solu-Cortef. She agrees with admission. Lab Data Attestation: I reviewed the patient's lab results. Labs: Laboratory Results - last 24 hr 07/16/21 07/16/21 11:25 11:25 Lactic Acid 0.9 Procalcitonin 0.12 H Critical Care Time Critical Care Time: Yes Critical care time (excluding procedures): 30-74 minutes (31), Including time spent: (History, physical, review of prior records, documentation, interpretation of lab results and treatment for adrenal insufficiency and hypotension.), Discussing w/Patient &/or Family/Audiometrist, Discussing w/Consultants (Oncologist and workforce development assistant) and Arranging Admission or Transfer Discharge Plan Dx/Rx/DC Orders Clinical Impression: Acute adrenal insufficiency, Acute hypotension, Elevated TSH Disposition Disposition: [facility]
[2021-07-16 12:04] LABS: Lactic Acid 0.9 mmol/L (0.4-1.9)
[2021-07-16 12:11] LABS: Procalcitonin 0.12 ng/mL (0.00-0.09)
[2021-07-16] MEDS: 0.9% Normal Saline 1,000 ML 125 ML IV ×2 (12:18→18:57)
--- NOTE | 2021-07-16 12:47 | HP.PCM.HOS_ITS ---
HPI - General General Date of Admission: 07/16/21 HPI Narrative CHRIS GARDNER, is a 65 M with an extensive PMH as outlined who presents with a complaint of weakness and fatigue and loss of appetite as well as weight loss. He had associated nausea. He is having chemotherapy for metastatic melanoma. His symptoms had not been improving. He denied any fever, chills, nausea, vomiting or diarrhea. Vitals in the ED were temp of 97.2F, [place] of 67, BP of 105/82, and RR of 17. He was saturating at 98% on room air. CBC showed wbc of 5.2, hb of 12 and platelets of 243. Chemistry showed sodium of 134, K of 3.8, bicarb of 25, and glucose of 147. TSH was 5.12 and free T4 was low at 0.75. Random cortisol level was very low at <0.5. COVID test was negative. Endocrinology was called by ED, and recommended patient's ACTH be checked before he was given solu-cortef. He is being admitted to be managed for acute adrenal insufficiency. [facility] Medical History Dry skin dermatitis Encounter for screening for COVID-19 Fatigue Hyperglycemia Limb weakness Mass of soft tissue Melanoma Metastasis to adrenal gland PORT PLACEMENT Pulmonary embolism Shoulder pain surgery on fingers Home Medications rivaroxaban 20 mg tablet 20 mg PO DAILY tab 06/25/21 [History Last Taken 07/16/21] pembrolizumab [Keytruda] 25 mg IV .[id number] 07/16/21 [History Last Taken 6 Weeks Ago ~06/04/21] Allergy/AdvReac Type Severity Reaction Status Date / Time Penicillins [PCN] Allergy Severe Unknown Verified 07/16/21 10:15 Family History Brother Prostate cancer Bladder cancer Father Stomach cancer Heart disease Surgical History Melanoma Social History Smoking Status: Current some day smoker tobacco type: cigarettes Tobacco: How many years used: 20 Smokeless tobacco user: chewing tobacco second hand exposure: No alcohol intake: current alcohol intake frequency: a few times a week details: occasionally substance use type: does not use seatbelt use: always do you feel safe at home: Yes ROS Constitutional Constitutional: Reports anorexia, change in weight, fatigue, malaise and weakness; Denies chills or fever(s) Eyes Eyes: Denies change in vision ENT HEENT: Denies dysphagia, headache(s), hearing loss, nasal congestion or nasal discharge Cardiovascular Cardiovascular: Denies chest pain, dyspnea on exertion, lightheadedness, orthopnea, paroxysmal nocturnal dyspnea or rapid heart rate Respiratory/Chest Respiratory/Chest: Reports cough; Denies productive cough, shortness of breath at rest or shortness of breath with exertion Gastrointestinal Gastrointestinal: Denies abdominal pain, constipation, diarrhea, nausea or vomiting Genitourinary Genitourinary: Reports burning urination Musculoskeletal Musculoskeletal: Denies arthralgias or joint swelling Neurologic Neurologic: Denies confusion Psychiatric Psychiatric: Denies anxiety or depression Endocrine Endocrinology: Denies change in body appearance, cold intolerance, excessive sweating or heat intolerance Hematologic/Lymphatic Hematologic/Lymphatic: Reports anemia Vital Signs Vital Signs Vital Signs: 07/16/21 10:12 07/16/21 11:14 Temperature 97.2 F L Temperature Source Temporal Pulse Rate 78 67 Respiratory Rate 16 17 Respiratory Effort Normal Non-Labored Respiratory Pattern Normal Blood Pressure 95/74 105/82 H Blood Pressure Mean 81 89 Pulse Ox 98 Oxygen Delivery Method Room Air Room Air Weight Weight: 171 lb Body Mass Index (BMI) 25.9 Physical Exam Const alert, oriented x3 and no apparent distress General Appearance: cooperative HEENT hearing grossly normal bilaterally HEENT Narrative: dry mucosal membranes Eyes PERRL, EOMs intact bilaterally and conjunctivae normal Neck no lymphadenopathy Resp normal respiratory effort, no retractions, no use of accessory muscles and clear to auscultation bilaterally Cardio regular rate, regular rhythm, S1 normal heart sound, S2 normal heart sound and no murmurs GI normal to inspection, nondistended, normoactive bowel sounds, soft to palpation, non-tender, non-distended and hepatosplenomegaly Extremity normal to inspection, full ROM and no clubbing, cyanosis or edema Peripheral Pulses: Yes pulses 2+ throughout Skin no rashes or lesions noted Neuro oriented x3, CN's II-XII intact bilaterally and moves all extremities Sensorium / Orientation: awake and alert Psych affect normal Results Lab / Micro Data Labs: Laboratory Results - last 24 hr 10/07/21 11:25: Lactic Acid 0.9 07/16/21 11:25: Procalcitonin 0.12 H Assessment & Plan Assessment/Plan (1) Acute adrenal insufficiency: (2) Elevated TSH: PLAN: #Acute adrenal insufficiency * probably related to chemotherapy for metastatic melanoma * admit to PCU * hydrate with IVF NS * administer IV solu-cortef 20mg bid per discussion with endocrinology * PT/OT consult. Fall precautions. * #metastatic melanoma * has metastases to the lung * follow with oncology on outpatient basis. * on keytruda monthly * DVT prophylaxis: lovenox Code status: full code * Patient counseled extensively about different types of CODE STATUS including full code, DNR CCA and DNR CCA. Patient elects to be full code. Total [id number] time 16 minutes. Charges/Coding Visit Charges Inpatient E&M: 83236 Init Hosp L3 Procedures Hospitalists Procedures: 58393 Advncd Care Plan 30 Min
[2021-07-16] MEDS: Hydrocortisone Sod Succinate 100 MG/2 ML Vial IV (13:21)
--- NOTE | 2021-07-16 16:07 | PCS.PANDOC ---
PANDEMIC DOCUMENTATION INITIATED: Date: 05/25/2021 Time: 190
[2021-07-16] MEDS: Hydrocortisone Sod Succinate 100 MG/2 ML Vial 50 MG IV ×2 (19:03→23:05)
[2021-07-17] VITALS (8 sets, daily range): BP systolic 120–146; BP diastolic 74–93; PULSE 78–91; RESP 16–18; TEMP 36.1–36.6; O2SAT 96–98
[2021-07-17] MEDS: 0.9% Normal Saline 1,000 ML 125 ML IV ×2 (03:04→10:57)
[2021-07-17] MEDS: Hydrocortisone Sod Succinate 100 MG/2 ML Vial 50 MG IV ×2 (05:14→11:03)
[2021-07-17 06:15] LABS: Absolute Lymphocyte Count 0.74 X10^3/uL (0.83-4.51); Hematocrit 32.2 % (40-54); Lymphocyte # 0.74 X10^3/ul (0.83-4.51); Lymphocyte % 12.2 % (19-41); Mean Corp Hgb Conc 34.2 g/dL (32-36); Mean Corpuscular Hgb 30.2 pg (27.0-32.0); Mean Corpuscular Volume 88.5 fL (80-94); Mean Platelet Vol. 10.5 fl (6.2-12.0); Monocyte# 0.29 X10^3/uL; Monocyte% 4.8 % (0-10); NRBC Flagged by Analyzer 0 % (0-5); Neutrophil # 5.02 X10^3/uL (2.7-7.7); Neutrophil % 82.7 % (47-70); Platelet Count 277 K/mm3 (150-450); RBC Distribution Width CV 13.1 % (11.6-14.6); RBC Distribution Width SD 42.8 fl (35.1-43.9); Red Blood Count 3.64 M/mm3 (4.6-6.2); White Blood Count 6.1 K/mm3 (4.4-11.0)
[2021-07-17 06:42] LABS: Anion Gap 8 (5-15); BUN 15 mg/dL (7-18); BUN/Creat Ratio 20.4 RATIO (10-20); Calcium,Total 8.7 mg/dL (8.5-10.1); Chloride 108 mmol/L (98-107); Creatinine, Serum 0.74 mg/dL (0.70-1.30); EST Glomerular Filtration Rate 113 mL/min (>60); Est Glom Filt Rate - Afr Amer 137 mL/min (>60); Estimated Creatinine Clearance 96.28 ml/min; Glucose 171 mg/dL (74-106); Sodium Level 139 mmol/L (136-145)
--- NOTE | 2021-07-17 08:45 | NURSING ---
This RN assuming care of patient from Debora Bernal RN.
[2021-07-17] MEDS: 0.9% Saline Lock 10 ML Syringe IV (11:03)
--- NOTE | 2021-07-17 11:28 | PN.HOSP_ITS ---
Subjective Subjective Patient seen and examined. He has no complaints and feels much better. He says he is now having an appetite and is able to eat. Review of systems is otherwise negative. He has remained hemodynamically stable. Objective Data Objective Data Vital Signs: Vital Signs Temp Pulse Resp BP Pulse Ox 97.8 F 81 18 120/74 96 07/17/21 09:55 07/17/21 09:55 07/17/21 09:55 07/17/21 09:55 07/17/21 09:55 Oxygen Delivery Method Room Air Weight: 169 lb 15.622 oz Body Mass Index (BMI) 25.8 Intake & Output: Intake and Output for Last 24 Hours 07/15/21 07/16/21 07/17/21 23:59 23:59 23:59 Intake Total 1231.25 / 1231.25 2925.42 / 2925.42 Output Total 600 / 600 400 / 400 Balance 631.25 / 631.25 2525.42 / 2525.42 Lab / Micro Data Result Diagrams: 07/17/21 05:30 07/17/21 05:30 Labs: Laboratory Results - last 24 hr 07/16/21 10:45: COVID-19 (SAIGE) Not Detected 07/16/21 11:25: Lactic Acid 0.9 07/16/21 11:25: Procalcitonin 0.12 H 07/17/21 05:30: WBC 6.1, RBC 3.64 L, Hgb 11.0 L, Hct 32.2 L, MCV 88.5, MCH 30.2, MCHC 34.2, RDW Std Deviation 42.8, RDW Coeff of Rock 13.1, Plt Count 277, MPV 10.5, Immature Gran % (Auto) 0.300, Neut % (Auto) 82.7 H, Lymph % (Auto) 12.2 L, [place] % (Auto) 4.8, Eos % (Auto) 0.0, Baso % (Auto) 0.0, Absolute Neuts (auto) 5.0, Absolute Lymphs (auto) 0.74 L, Nucleated RBC % 0 07/17/21 05:30: Sodium 139, Potassium 4.0, Chloride 108 H, Carbon Dioxide 23.0, Anion Gap 8, BUN 15, Creatinine 0.74, Estim Creat Clear Calc 96.28, Est GFR (MDRD) Af Amer 137, Est GFR (MDRD) Non-Af 113, BUN/Creatinine Ratio 20.4 H, Glucose 171 H, Calcium 8.7 Physical Exam Const alert, oriented x3 and no apparent distress General Appearance: cooperative Exam Limitations: no limitations HEENT hearing grossly normal bilaterally Head and Scalp: normocephalic Eyes PERRL, EOMs intact bilaterally and conjunctivae normal Neck no lymphadenopathy Resp normal respiratory effort, no retractions, no use of accessory muscles and clear to auscultation bilaterally Cardio regular rate, regular rhythm, S1 normal heart sound, S2 normal heart sound and no murmurs GI normal to inspection, nondistended, normoactive bowel sounds, soft to palpation, non-tender, non-distended and hepatosplenomegaly Extremity normal to inspection, full ROM and no clubbing, cyanosis or edema Peripheral Pulses: Yes pulses 2+ throughout Skin no rashes or lesions noted Neuro oriented x3, CN's II-XII intact bilaterally and moves all extremities Sensorium / Orientation: awake and alert Psych affect normal Assessment & Plan Assessment/Plan (1) Acute adrenal insufficiency: (2) Elevated TSH: PLAN: #Acute adrenal insufficiency * probably related to chemotherapy for metastatic melanoma * feels much better today.BP has remained stable. * DC IVF as he feels much better * start on oral hydrocortisone 20mg bid. * PT.OT consult. Fall precautions. * * * #metastatic melanoma * has metastases to the lung * follow with oncology on outpatient basis. * on keytruda monthly * DVT prophylaxis: lovenox Code status: full code #Disposition: for likely DC tomorrow. Charges/Coding Visit Charges Inpatient E&M: 83424 Subs Hosp L2
--- NOTE | 2021-07-17 16:42 | CASEMGMT ---
RN CM Assessment Introduced role of RN CM to patient. Patient is alert, oriented and able to participate in RN CM Assessment. Care providers, pharmacy, and demographics verified. Admit Dx: Acute Adrenal Insufficiency Re-Admit: NBo Barriers/Issues: None. He is having chemotherapy for metastatic melanoma. Getting Keytruda every 3 weeks IV at [facility] Onc via Port a cath. Has no PCP- list provided. 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 Has SW rack card. Living Arrangements: Lives with in a trailer, 4 steps to enter. ADL?s: Independent with ambulation and ADLs Transportation: Both patient and drive. Patient drove self and plans to drive self on DC. DME: None HHC: None SNF: None Goal: Home and denies any issues, concerns or needs. DC PLAN: Home with no anticipated needs identified at this time. ANIKET Smith
[2021-07-17] MEDS: Rivaroxaban 20 MG Tablet PO (18:38)
[2021-07-17] MEDS: Hydrocortisone 10 MG Tablet 20 MG PO (18:53)
[2021-07-18 03:07] VITALS: PULSE 88
[2021-07-18 03:35] VITALS: BP 151/97; PULSE 81; RESP 18; TEMP 36.8; O2SAT 95
[2021-07-18 06:35] LABS: Absolute Lymphocyte Count 1.56 X10^3/uL (0.83-4.51); Absolute Neutrophil Count 5.1 X10^3/uL (2.0-7.7); Basophil# 0.03 X10^3/uL; Basophil% 0.4 % (0-1); Eosinophil# 0.06 X10^3/uL; Eosinophils% 0.8 % (0-5); Hemoglobin 10.4 g/dL (13.0-16.5); Lymphocyte # 1.56 X10^3/ul (0.83-4.51); Lymphocyte % 21.5 % (19-41); Mean Corp Hgb Conc 33.5 g/dL (32-36); Mean Corpuscular Hgb 30.3 pg (27.0-32.0); Mean Corpuscular Volume 90.4 fL (80-94); Mean Platelet Vol. 10.1 fl (6.2-12.0); Monocyte% 6.9 % (0-10); NRBC Flagged by Analyzer 0 % (0-5); Neutrophil # 5.09 X10^3/uL (2.7-7.7); Neutrophil % 70.1 % (47-70); Platelet Count 260 K/mm3 (150-450); RBC Distribution Width CV 13.5 % (11.6-14.6); RBC Distribution Width SD 44.4 fl (35.1-43.9); Red Blood Count 3.43 M/mm3 (4.6-6.2); White Blood Count 7.3 K/mm3 (4.4-11.0)
[2021-07-18 06:58] LABS: Anion Gap 6 (5-15); BUN 14 mg/dL (7-18); BUN/Creat Ratio 18.7 RATIO (10-20); Calcium,Total 8.5 mg/dL (8.5-10.1); Chloride 111 mmol/L (98-107); Creatinine, Serum 0.75 mg/dL (0.70-1.30); EST Glomerular Filtration Rate 111 mL/min (>60); Est Glom Filt Rate - Afr Amer 134 mL/min (>60); Glucose 97 mg/dL (74-106); Potassium 3.6 mmol/L (3.5-5.1); Sodium Level 143 mmol/L (136-145)
[2021-07-18 07:00] VITALS: PULSE 100
[2021-07-18 08:27] VITALS: BP 133/98; PULSE 86; RESP 18; TEMP 36.5; O2SAT 100
[2021-07-18] MEDS: Rivaroxaban 20 MG Tablet PO (08:29)
[2021-07-18] MEDS: Hydrocortisone 10 MG Tablet 20 MG PO (08:29)
--- NOTE | 2021-07-18 11:00 | DS.PCM_ITS ---
Providers Date of Admission: 07/16/21 Primary Care Physician: No Primary Care Phys Reason For Visit: ACUTE ADRENAL INSUFFICIENCY Diagnosis Discharge Diagnosis (1) Acute adrenal insufficiency: Status: Acute Code(s): E27.40 - Unspecified adrenocortical insufficiency (2) Elevated TSH: Status: Acute Code(s): R79.89 - Other specified abnormal findings of blood chemistry Medications at Discharge Home Medications rivaroxaban 20 mg tablet 20 mg PO DAILY tab 06/25/21 Keytruda 25 mg IV .[id number] 07/16/21 hydrocortisone 20 mg PO BID #60 tab 07/18/21 Hospital Course Operations None Procedures None Summary of Care Provided Minutes Spent on Discharge: 45 Hospital Course: CHRIS GARDNER, is a 65 M with an extensive PMH as outlined who presents with a complaint of weakness and fatigue and loss of appetite as well as weight loss. He had associated nausea. He is having chemotherapy for metastatic melanoma. His symptoms had not been improving. He denied any fever, chills, nausea, vomiting or diarrhea. Vitals in the ED were temp of 97.2F, [place] of 67, BP of 105/82, and RR of 17. He was saturating at 98% on room air. CBC showed wbc of 5.2, hb of 12 and platelets of 243. Chemistry showed sodium of 134, K of 3.8, bicarb of 25, and glucose of 147. TSH was 5.12 and free T4 was low at 0.75. Random cortisol level was very low at <0.5. COVID test was negative. Endocrinol alta was called by ED, and recommended patient's ACTH be checked before he was given solu-cortef. He was admitted to be managed for acute adrenal insufficiency. He was started on hydration with IV fluids and started on IV Solu-Cortef. Patient symptoms resolved and he felt much better. He was able to eat and tolerated diet. He was switched to p.o. hydrocortisone 20 mg twice daily. ACTH was pending at time of discharge. Patient remained stable and was discharged home on 07/18/2021 on p.o. hydrocortisone 20 mg twice daily. He is to follow-up with his primary care doctor and oncology and was referred to endocrinology for follow-up and for determination about when to stop or wean off hydrocortisone. Patient was seen and examined prior to discharge. He felt well and had no complaints. He had an uneventful night and was ready to go home. Review of systems otherwise negative. Labs and vitals reviewed. Home medications reviewed and reconciled. Physical Exam Const alert, oriented x3 and no apparent distress General Appearance: cooperative Orientation / Consciousness: awake Exam Limitations: no limitations HEENT normocephalic, head/scalp atraumatic and hearing grossly normal bilaterally Eyes PERRL, EOMs intact bilaterally and conjunctivae normal Neck no lymphadenopathy Resp normal respiratory effort, no retractions, no use of accessory muscles and clear to auscultation bilaterally Cardio regular rate, regular rhythm, S1 normal heart sound, S2 normal heart sound and no murmurs GI normal to inspection, nondistended, normoactive bowel sounds, soft to palpation, non-tender, non-distended and hepatosplenomegaly Extremity normal to inspection, full ROM and no clubbing, cyanosis or edema Skin no rashes or lesions noted Neuro oriented x3, CN's II-XII intact bilaterally and moves all extremities Sensorium / Orientation: awake and alert Psych affect normal Medical Records Data Medical Nutrition Assessment Dietitian: Malnutrition Criteria Met Start: 07/17/21 16:32 Freq: Status: Active Protocol: Document 07/17/21 16:32 RMA (Rec: 07/17/21 16:33 RMA [id number]) Nutrition Malnutrition Evidence of Malnutrition Exists Yes Malnutrition (severe): Chronic Evidenced By Suboptimal Energy Intake ( Severe),Weight Loss (Severe) Clinical Problem Chronic Disease or Condition Related Malnutrition Etiology Severe protein-calorie malnutrition in the context of chronic disease related to metastasis/cancer and inability to take adequate PO/ increased energy expenditure Signs/Symptoms as evidenced by 8% wt loss x past month and PO meeting less than 50% estimated nutrition needs x past 4-6 weeks prior to admission. Status Active Problem Recommendation Dietitian Recommendations/Changes Will change diet to Regular. Will continue ensure w/ medpass as ordered. Will add heredia magic cup BID w / meals lunch and dinner. Encouraged to call RD as needed to adjust ONS as per pt tolerance. Weight / BMI Weight Weight: 169 lb 15.622 oz Body Mass Index (BMI) 25.8 ABG / Lab / Microbiology Data Result Diagrams: 07/18/21 06:12 07/18/21 06:12 Laboratory: Laboratory Results - last 24 hr 07/18/21 06:12: WBC 7.3, RBC 3.43 L, Hgb 10.4 L, Hct 31.0 L, MCV 90.4, MCH 30.3, MCHC 33.5, RDW Std Deviation 44.4 H, RDW Coeff of Rock 13.5, Plt Count 260, MPV 10.1, Immature Gran % (Auto) 0.300, Neut % (Auto) 70.1 H, Lymph % (Auto) 21.5, [place] % (Auto) 6.9, Eos % (Auto) 0.8, Baso % (Auto) 0.4, Absolute Neuts (auto) 5.1, Absolute Lymphs (auto) 1.56, Nucleated RBC % 0 07/18/21 06:12: Sodium 143, Potassium 3.6, Chloride 111 H, Carbon Dioxide 26.0, Anion Gap 6, BUN 14, Creatinine 0.75, Estim Creat Clear Calc 95.00, Est GFR (MDRD) Af Amer 134, Est GFR (MDRD) Non-Af 111, BUN/Creatinine Ratio 18.7, Glucose 97, Calcium 8.5 D/C Instructions Discharge Diet: Low fat / Low cholesterol Discharge Activity: Return to Normal Activity Call your doctor if you observe: Fever of 101 or Higher, Shortness of breath, Dizziness, Swelling in the ankles, Chest pain and Increased palpitations (irregular heartbeat) Meaningful Use Info Meaningful Use Diagnoses (Choose all that apply): None applicable Discharge Plan Admission Admit Date/Time: 07/16/21 13:03 Primary Reason for Your Visit: acute adrenal insufficiency Attending Provider: Betzy Campos Primary Care Provider: Care Physician,No Primary Instructions Patient Instructions: Secondary Adrenal Insufficiency Discharge Orders/Prescriptions Prescriptions: New hydrocortisone 20 mg tablet 20 mg PO BID Qty: 60 RF: 1 Continued rivaroxaban 20 mg tablet 20 mg PO DAILY RF: 0 Keytruda 25 mg/mL Solution 25 mg IV .[id number] RF: 0 Referrals / Follow Up: Mango Collado MD [STAFF PHYSICIAN] - Within 2 Weeks Alessandro Luevano MD [STAFF PHYSICIAN] - Within 2 Weeks (call office to schedule appointment to establish care for adrenal insufficiency) Care Physician,No Primary [Primary Care Provider] - Disposition Disposition (needs filled in before D/C Order can be placed): Home, Self Care Charges/Coding Visit Charges Inpatient E&M: 64612 Disch Hosp
[2021-07-18] MEDS: 0.9% Saline Lock 10 ML Syringe IV (12:15)
[2021-07-19 08:34] LABS: Adrenocorticotropic Hormone < 1.5 pg/mL (7.2-63.3)
== END 2021-07-18 12:30 | disposition home or self-care (01) | DRG 644 ==
LOC: ED 12:44 → PCU 13:08
PROVIDERS: Admitting Provider Student in an Organized Health Care Education/Training Program; Emergency Provider Emergency Medicine; Visit Provider Student in an Organized Health Care Education/Training Program
DX: E27.40 Unspecified adrenocortical insufficiency (principal); C79.70 Secondary malignant neoplasm of unspecified adrenal gland; C78.00 Secondary malignant neoplasm of unspecified lung; R94.6 Abnormal results of thyroid function studies; C43.9 Malignant melanoma of skin, unspecified; Z79.899 Other long term (current) drug therapy; Z86.711 Personal history of pulmonary embolism; F17.210 Nicotine dependence, cigarettes, uncomplicated; L27.0 Generalized skin eruption due to drugs and medicaments taken internally; T45.1X5A Adverse effect of antineoplastic and immunosuppressive drugs, initial encounter
CPT/HCPCS: 36415; 80048; 82024; 83605; 84145; 85025; 87635; 97802; 99284; 99406; J7030; U0005; A4216; U0003

== ENCOUNTER → 2021-08-31 13:39 | Outpatient (CLI) | payer BC, MEDICARE, OTHER, SELFPAY ==
--- NOTE | 2021-08-31 13:46 | CT_ITS ---
STUDY: CT CHEST, ABDOMEN T PELVIS WITH CONTRAST REASON FOR EXAM: Male, 65 years old. F/U RESPONSE TO TREATMENT - METASTATIC MELANOMA RADIATION DOSAGE (If Supplied By Facility): CTDIvol = ( 12.83 ) mGy, DLP = ( 1639.70 ) mGycm TECHNIQUE: Transaxial imaging was performed following intravenous administration of IV 100mL Isovue-300. Multiplanar coronal and sagittal images were reformatted. Individualized dose optimization techniques were used for this CT. COMPARISON: 06/04/2021. More remote comparison studies not available. FINDINGS: Lungs: Stable scattered 2 to 3 mm (image 65 series 6 for instance) pulmonary nodules throughout the lungs. No new pulmonary nodules. Persistent elevation of the left hemidiaphragm with atelectasis or fibrotic scarring in the left lung base. Mediastinum: The cardiomediastinal silhouette is not enlarged. Right jugular chest port is stable. Mild aortic arch and coronary artery calcifications. No obvious filling defect seen within the visualized pulmonary arteries. Slightly decreased in size of a 2.8 x 3.5 cm (previously measured 3.6 x 2.9 cm) left pericardial metastatic deposit. Mildly decrease in size of a 3.0 x 2.3 cm (previously measured 3.7 x 2.8 cm) right pericardial metastatic deposit. Pleura: Unremarkable Liver: Unremarkable Gallbladder: Unremarkable Spleen: Unremarkable Pancreas: Along the medial border of the pancreatic head, there is a 1.8 x 2.2 cm mass (abutting SMV) is overall similar when compared [id number] with the prior study. Adrenal Glands: Interval increase in size of a metastatic lesion in the right adrenal gland measuring 5.3 x 8.2 cm, previously 7.5 x 4.2 cm. Kidneys: 2 cm cortical intermediate density lesion of the left kidney is stable. Vasculature: Mild scattered aortoiliac atherosclerotic calcifications. GI Tract: No large or small bowel wall thickening. Colonic diverticulosis. Lymphadenopathy: None Peritoneum: No ascites. Bladder: Unremarkable Reproductive organs: Prostate calcifications. Bones/Soft tissues: There are diffuse degenerative changes of the spine. Small fat-containing umbilical hernia. CT/CT Chest, Abd, Pel w/Contrast IMPRESSION: 1. Since 06/04/2021, mixed treatment response with an INCREASE in size of the right adrenal metastasis but slight to mild DECREASE in size of a right pericardial metastatic deposit and left pericardial metastatic deposit. 2. Stable pancreatic (primary pancreatic) or peripancreatic (adenopathy) mass. Electronically Signed: Mickey Urbano MD ([place]) at 14:05 EST , Service support ,
--- NOTE | 2021-08-31 13:46 | CT_ITS ---
STUDY: LEFT LOWER EXTREMITY CT SCAN WITH CONTRAST REASON FOR EXAM: Male, 65 years old. F/U RESPONSE TO TREATMENT - METASTATIC MELANOMA -- BILATERAL THIGHS, SOFT TISSUES RADIATION DOSAGE (If Supplied By Facility): CTDIvol = ( 12.83 ) mGy, DLP = ( 1639.70 ) mGycm. Individualized dose optimization techniques were used for this CT.? TECHNIQUE: Axial multidetector CT scan of the left lower extremity. Coronal and sagittal reformatted images. Postcontrast evaluation of 100 mL ISOVUE 300. COMPARISON: 06/04/2021. 01/22/2021. Right lower extremity read in tandem. FINDINGS: Please see dedicated chest/abdomen/pelvic CT scans. Pubic symphysis intact. Right superior and inferior pubic ramus intact. Left superior and inferior pubic ramus intact. Left proximal tibia intact. Left proximal fibula intact. Left femur intact. Right proximal tibia intact. Right proximal fibula intact. Right femur intact. Prostatomegaly with prostate calcifications. Stable small fat-containing right inguinal hernia. Normal visualized portions of the large and small bowel. Normal urinary bladder. Small bilateral hydroceles (axial image 68 series 2). Stable small inguinal lymph nodes with normal architecture (axial image 22 series 2). Nonvisualized/resolved previously described anterior left thigh lesion. Stable left medial thigh lipoma (axial image 49 series 2). No new lesions identified. No obvious skin lesion identified given CT technique. IMPRESSION: No new lesions identified Nonvisualized/resolved left anterior thigh previously described lesion Stable small bilateral inguinal lymph nodes with normal architecture Stable left medial thigh lipoma Electronically Signed: Justin Reid DO at 12:51 EST Tel , Service support , STUDY: RIGHT LOWER EXTREMITY CT SCAN WITH CONTRAST REASON FOR EXAM: Male, 65 years old. F/U RESPONSE TO TREATMENT - METASTATIC MELANOMA -- BILATERAL THIGHS, SOFT TISSUES RADIATION DOSAGE (If Supplied By Facility): CTDIvol = ( 12.83 ) mGy, DLP = ( 1639.70 ) mGycm. Individualized dose optimization techniques were used for this CT.? TECHNIQUE: Axial multidetector CT scan of the right lower extremity. Coronal and sagittal reformatted images. Postcontrast evaluation of 100 mL ISOVUE 300. COMPARISON: 06/04/2021. 01/22/2021. Left lower extremity read in tandem. FINDINGS: Please see dedicated chest/abdomen/pelvic CT scans. Pubic symphysis intact. Right superior and inferior pubic ramus intact. Left superior and inferior pubic ramus intact. Left proximal tibia intact. Left proximal fibula intact. Left femur intact. Right proximal tibia intact. Right proximal fibula intact. Right femur intact. Prostatomegaly with prostate calcifications. Stable small fat-containing right inguinal hernia. Normal visualized portions of the large and small bowel. Normal urinary bladder. Small bilateral hydroceles (axial image 68 series 2). Stable small inguinal lymph nodes with normal architecture (axial image 22 series 2). Nonvisualized/resolved previously described anterior left thigh lesion. Stable left medial thigh lipoma (axial image 49 series 2). No new lesions identified. No obvious skin lesion identified given CT technique. CT/Extremity Lower WITH Contrast
[2021-08-31] MEDS: 0.9% Saline Lock 10 ML Syringe IV (14:48)
== END ==
PROVIDERS: Referring Provider Internal Medicine Hematology & Oncology; Visit Provider Internal Medicine Hematology & Oncology
DX: C79.9 Secondary malignant neoplasm of unspecified site (principal)
CPT/HCPCS: 71260; 73701; 74177; Q9967; A4216

== ENCOUNTER 2021-10-19 06:16 | Outpatient (CLI) | payer BC, MEDICARE, OTHER, SELFPAY ==
--- NOTE | 2021-10-19 06:31 | CT_ITS ---
STUDY: CT CHEST, ABDOMEN T PELVIS WITH CONTRAST REASON FOR EXAM: Male, 66 years old. MALIGNANT NEOPLASM OF SKIN. Metastatic melanoma. RADIATION DOSAGE (If Supplied By Facility): CTDIvol = ( 15.40 ) mGy, DLP = ( 1995.27 ) mGycm TECHNIQUE: Transaxial imaging was performed following intravenous administration of Oral and IV Readi-CAT and 100mL Isovue-300. Individualized dose optimization techniques were used for this CT. COMPARISON: Comparison is made with prior examination dated 08/31/2021. FINDINGS: CHEST A right-sided portacatheter is seen with the tip in the superior vena cava. Stable small benign-appearing axillary lymph nodes. There is a 3.6 x 2.5 cm soft tissue mass in the anterior aspect of the right middle lobe abutting the right pericardial region. This is essentially unchanged. A similar appearing mass is seen in the anterior aspect of the left little abutting the left pericardiac region measuring 3.1 cm x 3.1 cm. This has decreased in size. There is no demonstrated pleural abnormality. Normal heart and pericardium. Normal mediastinum. Normal hilar regions. Normal unenhanced pulmonary arteries. Normal aorta arch and descending thoracic aorta. There are degenerative changes of the thoracic spine. There is a 5.1 cm x 8 cm hypodense mass in the right adrenal gland. This is unchanged. ABDOMEN Normal liver. Normal gallbladder and extrahepatic biliary system. Normal spleen. Normal pancreas. Once again, there is a 8.1 signed by 4.4 cm lobulated mass in the right adrenal gland. This is essentially unchanged. Normal right kidney. Stable 2.1 cm hypodense nodule in the lateral inferior aspect of the left kidney. Normal visualized stomach. There now is evidence of a 4.4 cm x 3.9 cm x 3.7 cm soft tissue mass involving a jejunal loop in the right mid abdomen. Oral contrast is seen within this soft tissue mass. This may represent an ulcerated lesion. A similar appearing hypodense mass with the contrast within it is seen in the proximal ileal loop in the left lower quadrant. This measures 2.9 cm x 3.3 cm x 3.9 cm. Normal colon. The appendix is visualized and appears normal. There is scattered atherosclerotic calcification of the abdominal aorta, without a demonstrated aneurysm. Normal inferior vena cava. Normal retroperitoneum. There is a small umbilical hernia containing fat. There are diffuse degenerative changes of the visualized lumbar spine. Loss of the normal lumbar lordosis. PELVIS Normal urinary bladder. There is no pelvic fluid. There is diffuse atherosclerotic calcification of the pelvic arteries. CT/CT Chest, Abd, Pel w/Contrast IMPRESSION: There are 2 masses in the small bowel suggestive of a ulcerative masses as described above. The remainder the examination is unchanged. Electronically Signed: Emil Julio MD at 9:03 EST , Service support ,
[2021-10-19 06:50] LABS: CREATININE FINGERSTICK 0.8 mg/dL (0.70-1.30); EGFR FINGERSTICK > 60.0000 mL/min (>60)
[2021-10-19 07:22] LABS: Color, Urine Yellow (Yellow); Glucose, Dipstick Normal (Normal); Ketone-Dipstick Negative (Negative); Leukocyte Esterase-Dipstick 25 /ul (Negative); Nitrite-Dipstick Negative (Negative); Occult Blood-Urine Negative /ul (Negative); Protein-Dipstick 15 mg/dl (Negative); Specific Gravity, Urine 1.025 (1.002-1.030); Urine Bilirubin Dipstick Negative (Negative); Urine Clarity Sl. Cloudy (Clear); Urine Urobilinogen Normal (Normal)
[2021-10-19 07:23] LABS: Absolute Lymphocyte Count 2.27 X10^3/uL (0.83-4.51); Absolute Neutrophil Count 4.8 X10^3/uL (2.0-7.7); Basophil# 0.04 X10^3/uL; Basophil% 0.5 % (0-1); Eosinophils% 4.8 % (0-5); Hemoglobin 9.2 g/dL (13.0-16.5); Lymphocyte # 2.27 X10^3/ul (0.83-4.51); Lymphocyte % 27.3 % (19-41); Mean Corp Hgb Conc 29.7 g/dL (32-36); Mean Corpuscular Hgb 25.3 pg (27.0-32.0); Mean Corpuscular Volume 85.2 fL (80-94); Mean Platelet Vol. 10.8 fl (6.2-12.0); Monocyte# 0.73 X10^3/uL; Monocyte% 8.8 % (0-10); NRBC Flagged by Analyzer 0 % (0-5); Neutrophil # 4.83 X10^3/uL (2.7-7.7); Neutrophil % 58.2 % (47-70); Platelet Count 356 K/mm3 (150-450); RBC Distribution Width SD 43.4 fl (35.1-43.9); Red Blood Count 3.64 M/mm3 (4.6-6.2); White Blood Count 8.3 K/mm3 (4.4-11.0)
[2021-10-19 07:56] LABS: Free T3 2.6 pg/mL (2.18-3.98)
== END 2021-10-19 23:59 | disposition short-term general hospital (02) ==
PROVIDERS: Referring Provider Internal Medicine Medical Oncology; Visit Provider Internal Medicine Medical Oncology
DX: C43.59 Malignant melanoma of other part of trunk (principal)
CPT/HCPCS: 36415; 71260; 74177; 81002; 84481; 85025; Q9967

== ENCOUNTER 2021-10-26 15:12 | Outpatient (CLI) | payer BC, MEDICARE, OTHER, SELFPAY ==
--- NOTE | 2021-10-26 15:36 | EKG12_ITS ---
Test Reason : Blood Pressure : / mmHG Vent. Rate : 076 BPM Atrial Rate : 078 BPM P-R Int : 138 ms QRS Dur : 076 ms QT Int : 356 ms P-R-T Axes : 113 046 052 degrees QTc Int : 400 ms Undetermined rhythm : Consider Ectopic Atrial Rhythm Confirmed by SHERRIE MOSS, EDMUND ([id number]), film editor supervisor HEMANTH RODRIGUEZ ([id number]) on 10/28/2021 9:46:28 AM Referred By: [facility] Confirmed By:EDMUND BALDERAS MD
[2021-10-26 17:50] LABS: ALB/GLOB Ratio 0.9 RATIO (0.9-2.4); AST(SGOT) 14 U/L (15-37); Alanine Aminotransfer ALT/SGPT 22 U/L (16-61); Albumin, Serum 3.3 g/dL (3.2-5.0); Alkaline Phosphatase 108 U/L (45-117); Anion Gap 7 (5-15); BUN 23 mg/dL (7-18); BUN/Creat Ratio 22.1 RATIO (10-20); Calcium,Total 8.6 mg/dL (8.5-10.1); Chloride 103 mmol/L (98-107); Creatinine, Serum 1.04 mg/dL (0.70-1.30); EST Glomerular Filtration Rate 76 mL/min (>60); Est Glom Filt Rate - Afr Amer 92 mL/min (>60); Follicle Stimulating Hormone 8.7 mIU/mL; Globulin 3.8 g/dL (2.2-4.2); Glucose 160 mg/dL (74-106); Luteinizing Hormone 6.6 mIU/mL; Potassium 3.5 mmol/L (3.5-5.1); Prolactin 8.7 ng/mL; Protein, Total 7.1 g/dL (6.4-8.2); Sodium Level 137 mmol/L (136-145); T4 Free Direct 1.14 ng/dL (0.76-1.46); Thyroid Stim Hormone (TSH) 2.27 uIU/mL (0.358-3.74)
[2021-10-27 13:18] LABS: LDH 194 U/L (87-241)
[2021-10-31 17:07] LABS: Testosterone, % Free 2.12 % (1.50-4.20); Testosterone, Free 7.78 ng/dL (5.00-21.00)
[2021-11-01 08:06] LABS: Insulin Like Growth Factor 165 ng/mL (59-230); Testosterone, Total 367 ng/dL (264-916)
== END 2021-10-26 23:59 | disposition home or self-care (01) ==
PROVIDERS: Internal Medicine Endocrinology, Diabetes & Metabolism; Visit Provider Registered Nurse
DX: C43.59 Malignant melanoma of other part of trunk (principal); D89.89 Other specified disorders involving the immune mechanism, not elsewhere classified; Z00.6 Encounter for examination for normal comparison and control in clinical research program
CPT/HCPCS: 36415; 80053; 83001; 83002; 83615; 84146; 84305; 84402; 84403; 84439; 84443; 93005